=== PATIENT | female | born 1940 | race Caucasian/White ===

== ENCOUNTER → 2018-05-13 | Outpatient (CLI) | payer OTHER ==
[~2018-05-13] MED LIST: BUSP5TAB3 PO; GABA-531 PO; LEVO125T11 PO; LOVA40TA2 PO; MELA10CA2 PO; METO25TA6 PO; PRAM0.5T3 PO; SUCR1ORA5 PO; TRAM50TA4 PO; VITAMIN B12 PO; VITAMIN B6 PO; WARF-57 PO
== END | disposition home or self-care (01) ==
LOC: RAH 10:30
PROVIDERS: ATTEND Internal Medicine
DX: R92.2 Inconclusive mammogram (principal)
CPT/HCPCS: 77066

== ENCOUNTER → 2019-10-19 | Outpatient (CLI) | payer OTHER ==
[~2019-10-19] MED LIST changes: +SUCR1ORA15 PO; -SUCR1ORA5 PO
== END | disposition home or self-care (01) ==
LOC: SHCH 10:44
PROVIDERS: ATTEND Internal Medicine Cardiovascular Disease
DX: I87.2 Venous insufficiency (chronic) (peripheral) (principal)
CPT/HCPCS: 93970

== ENCOUNTER 2020-01-05 07:22 | Day surgery (SDC) | payer OTHER ==
[2020-01-05] VITALS (7 sets, daily range): BP systolic 128–177; BP diastolic 56–79
[~2020-01-05] VITALS: Ht 165.1 cm; Wt 74.2 kg
[~2020-01-05 07:22] MED LIST changes: -BUSP5TAB3 PO; +FURO20TA4 PO; +SODIUM CHLORIDE 0.9% 1000ML 1,000 ML IV ONE
[2020-01-05] MEDS ORDERED: DENO60DI SQ (09:22)
[2020-01-05] MEDS ORDERED: HYOS-27 SL (09:22)
[2020-01-05] MEDS ORDERED: MV-M1TAB20 PO (09:22)
[2020-01-05] MEDS ORDERED: PANT40TA25 PO (09:22)
[2020-01-05] MEDS ORDERED: FURO20TA4 PO (09:22)
[2020-01-05] MEDS ORDERED: MIDAZOLAM HCL 1 MG/ML 2ML VIAL ONE (09:56)
[2020-01-05] MEDS ORDERED: PROPOFOL 10 MG/ML 20ML VIAL IV ONE (09:56)
[2020-01-05] MEDS ORDERED: SIMETHICONE 40 MG/0.6 ML ML ONE (10:57)
--- NOTE | 2020-01-05 10:57 | NUR ---
PAIN PT C/O PAIN, "GENERALIZED" TO ABD AND "ALL OVER." ABD SOFT TO TOUCH. BS X4 PRESENT. ELIS SALDANA MADE AWARE. SHE WILL INFORM DR. FUNES
--- NOTE | 2020-01-05 11:03 | NUR ---
EVALUATION DR. FUNES HERE TO EVALUATE PT. PALPATED ABD. ORDERS RECEIVED TO GIVE 20 MG OF SIMETHICONE ORALLY NOW.
--- NOTE | 2020-01-05 11:16 | NUR ---
PAIN PT BURPING. AMBULATED TO RESTROOM. VOIDED. FEELS BETTER.
== END 2020-01-05 11:30 | disposition home or self-care (01) ==
LOC: ENDO 07:22 → DAH 07:22 → ENDO 11:30
PROVIDERS: ATTEND Internal Medicine Gastroenterology
DX: R93.3 Abnormal findings on diagnostic imaging of other parts of digestive tract (principal); K22.8 Other specified diseases of esophagus; K22.0 Achalasia of cardia; K86.9 Disease of pancreas, unspecified; K21.9 Gastro-esophageal reflux disease without esophagitis; F41.9 Anxiety disorder, unspecified; M85.80 Other specified disorders of bone density and structure, unspecified site; G47.30 Sleep apnea, unspecified; E78.5 Hyperlipidemia, unspecified; I10 Essential (primary) hypertension; E03.9 Hypothyroidism, unspecified; F32.9 Major depressive disorder, single episode, unspecified; Z90.710 Acquired absence of both cervix and uterus; Z98.890 Other specified postprocedural states; Z79.01 Long term (current) use of anticoagulants; Z79.84 Long term (current) use of oral hypoglycemic drugs; Z79.899 Other long term (current) drug therapy; I48.0 Paroxysmal atrial fibrillation; Z11.59 Encounter for screening for other viral diseases
CPT/HCPCS: 36415; 43237; A4215; A4221; A4222; A4223; A4606; A4620; A4663; J2250; J2704; J7030; U0003; 43259

== ENCOUNTER 2020-07-16 23:54 | Emergency (ER) | payer OTHER ==
[~2020-07-16 23:54] MED LIST changes: +DENO60DI SQ; +HYOS-27 SL; +MV-M1TAB20 PO; +PANT40TA54 PO; -SODIUM CHLORIDE 0.9% 1000ML 1,000 ML IV ONE; -VITAMIN B6 PO
[2020-07-17] MEDS ORDERED: CEFTRIAXONE SODIUM 1 GM ONE (00:28)
[2020-07-17] MEDS ORDERED: DEXAMETHASONE SOD PHOSPHATE 10MG/ML 1ML VIAL ONE (00:28)
[2020-07-17] MEDS ORDERED: ONDANSETRON HCL 4 MG/2 ML VIAL ONE ×2 (00:28→03:03)
[2020-07-17] MEDS ORDERED: FAMOTIDINE/PF 20 MG/2 ML VIAL IV ONE (00:29)
[2020-07-17 00:30] LABS: BASOPHILS % (AUTO) 0.3 % (0.0-5.0); EOSINOPHILS % (AUTO) 0.2 % (0.0-8.0); HEMATOCRIT 36.5 % (36-48); MEAN CORPUSCULAR HEMOGLOBIN 26.9 pg (27.0-33.0); MEAN CORPUSCULAR HGB CONC 32.3 g/dL (32.0-36.0); MEAN CORPUSCULAR VOLUME 83.3 fL (79-99); MONOCYTES % (AUTO) 7.9 % (3.0-13.0); NEUTROPHILS % (AUTO) 74.3 % (40.0-77.0); PLATELET COUNT (AUTO) 369 K/uL (130-400); RED BLOOD CELL COUNT(AUTO) 4.38 MIL/uL (4.00-5.50); RED CELL DISTRIBUTION WIDTH 15.4 % (11.0-15.5); WHITE BLOOD COUNT (AUTO) 8.8 K/uL (4.8-10.8)
[2020-07-17 00:50] LABS: INR 1.69 (0.85-1.15); PROTHROMBIN TIME 17.2 SEC (9.6-11.6)
[2020-07-17 00:52] LABS: PARTIAL THROMBOPLASTIN TIME 31.6 SEC (26.3-35.5)
[2020-07-17 00:57] LABS: ALBUMIN 3.3 g/dL (3.5-5.0); BILIRUBIN,TOTAL 0.6 mg/dL (0.2-1.0); CREATININE 0.8 mg/dL (0.5-1.5); TOTAL PROTEIN, SERUM 7.2 g/dL (6.0-8.3)
[2020-07-17 00:58] LABS: POTASSIUM 2.9 mmol/L (3.5-5.1)
[2020-07-17] MEDS ORDERED: POTASSIUM BICARB/CIT AC 25 MEQ TABLET.EFF ONE (01:32)
[2020-07-17 01:56] LABS: APPEARANCE,URINE Cloudy (CLEAR); BILIRUBIN,URINE Negative (NEGATIVE); COLOR,URINE Yellow (YELLOW); GLUCOSE, URINE (UA) Negative (NEGATIVE); KETONES,URINE 15 mg/dL (NEGATIVE); LEUKOCYTE ESTERASE ,URINE Trace (NEGATIVE); NITRATE,URINE Negative (NEGATIVE); OCCULT BLOOD,URINE Negative (NEGATIVE); PH,URINE 8.5 (5.0-8.0); PROTEIN,URINE Negative (NEGATIVE); UROBILINOGEN,URINE 0.2 mg/dL (0.2-1.0)
[2020-07-17 02:22] LABS: AMORPHOUS SEDIMENT,UR Moderate /LPF (None Seen); BACTERIA,URINE None Seen /HPF (None Seen); RBC,URINE None Seen /HPF (0-1); SQUAMOUS EPITHELIAL CELL,UR Rare /HPF (0-2); WBC,URINE 0-1 /HPF (0-1)
[2020-07-17] MEDS ORDERED: DiphenhydrAMINE HCL 50 MG/ML VIAL ONE (03:03)
[2020-07-17] MEDS ORDERED: PROCHLORPERAZINE EDISYLATE 10 MG/2 ML VIAL ONE (03:03)
[2020-07-17 03:32] LABS: CREATININE 0.8 mg/dL (0.5-1.5); POTASSIUM 3.7 mmol/L (3.5-5.1)
[2020-07-17 03:37] LABS: ALBUMIN 3.4 g/dL (3.5-5.0); BILIRUBIN,TOTAL 0.6 mg/dL (0.2-1.0); TOTAL PROTEIN, SERUM 7.7 g/dL (6.0-8.3)
[2020-09-03] MEDS ORDERED: METO-408 PO (11:12)
== END 2020-07-17 05:39 | disposition home or self-care (01) ==
LOC: EDH 23:54
DX: E87.6 Hypokalemia (principal); J44.1 Chronic obstructive pulmonary disease with (acute) exacerbation; I10 Essential (primary) hypertension; Z88.8 Allergy status to other drugs, medicaments and biological substances
CPT/HCPCS: 36415; 71045; 80053 ×2; 81001; 83605; 84484 ×2; 85025; 85610; 85730; 87040 ×2; 93005; 96365; 96375; 96376; 99284; J0696; J0780; J1100; J1200; J2405 ×2; J3490

== ENCOUNTER 2020-08-30 08:41 | Inpatient (IN) | payer OTHER ==
[~2020-08-30] VITALS: Ht 162.6 cm; Wt 56.1 kg
[2020-08-30 11:12] LABS: BASOPHILS % (AUTO) 0.3 % (0.0-5.0); HEMATOCRIT 37.7 % (36-48); LYMPHOCYTES % (AUTO) 8.7 % (21.0-51.0); MEAN CORPUSCULAR HEMOGLOBIN 25.7 pg (27.0-33.0); MEAN CORPUSCULAR VOLUME 82.9 fL (79-99); NEUTROPHILS % (AUTO) 84.5 % (40.0-77.0); PLATELET COUNT (AUTO) 391 K/uL (130-400); RED BLOOD CELL COUNT(AUTO) 4.55 MIL/uL (4.00-5.50); RED CELL DISTRIBUTION WIDTH 14.5 % (11.0-15.5); WHITE BLOOD COUNT (AUTO) 11.2 K/uL (4.8-10.8)
[2020-08-30 11:19] LABS: CREATININE 0.9 mg/dL (0.5-1.5); POTASSIUM 3.3 mmol/L (3.5-5.1)
[2020-08-30 11:24] LABS: ALBUMIN 3.8 g/dL (3.5-5.0); BILIRUBIN,TOTAL 0.7 mg/dL (0.2-1.0); TOTAL PROTEIN, SERUM 8.1 g/dL (6.0-8.3)
[2020-08-30] MEDS ORDERED: HYOSCYAMINE SULFATE 0.125 MG TAB.SUBL SL ONE (11:25)
[2020-08-30] MEDS ORDERED: 0.9%NACL 1000ML 1,000 ML IV ONE (11:25)
[2020-08-30] MEDS ORDERED: ONDANSETRON 4MG INJ ONE ×2 (11:25→15:53)
[2020-08-30] MEDS ORDERED: 0.9%NACL 50ML 50 ML IV ONE ×2 (11:27→15:58)
[2020-08-30] MEDS ORDERED: FENTANYL CITRATE PF 50 MCG/1 ML 2ML VIAL ONE (11:27)
[2020-08-30] MEDS ORDERED: IOHEXOL-350 75 ML VIAL IV ONE (12:13)
[2020-08-30 13:43] LABS: INR 1.6 (0.85-1.15); PROTHROMBIN TIME 16.7 SEC (9.6-11.6)
[2020-08-30 13:45] LABS: PARTIAL THROMBOPLASTIN TIME 29.1 SEC (26.3-35.5)
[2020-08-30] MEDS: DEXTROSE 5 % AND 0.9 % NACL 1,000 ML IV SCH (14:00)
[2020-08-30] MEDS ORDERED: ONDANSETRON 4MG INJ IVP PRN (14:00)
[2020-08-30] MEDS ORDERED: MAGNESIUM 2GM PREMIX 50ML 50 ML IV SCH (14:00)
[2020-08-30] MEDS: CEFTRIAXONE 1G VIAL IVP SCH (14:00)
[2020-08-30] MEDS: PANTOPRAZOLE 40 MG/VIAL IVP SCH ×2 (14:00→21:00)
[2020-08-30] MEDS ORDERED: POTASSIUM CHLORIDE 20MEQ/100ML 100 ML IV ONE (14:57)
[2020-08-30] MEDS ORDERED: PANTOPRAZOLE 40 MG/VIAL ONE (15:53)
[2020-08-30] MEDS ORDERED: CEFTRIAXONE 1G VIAL ONE (15:57)
[2020-08-30] MEDS ORDERED: DEXTROSE 5 % AND 0.9 % NACL 1,000 ML IV ONE (15:58)
[2020-08-30 16:16] LABS: APPEARANCE,URINE Clear (CLEAR); BILIRUBIN,URINE Negative (NEGATIVE); COLOR,URINE Yellow (YELLOW); GLUCOSE, URINE (UA) Negative (NEGATIVE); KETONES,URINE 15 mg/dL (NEGATIVE); LEUKOCYTE ESTERASE ,URINE Negative (NEGATIVE); NITRATE,URINE Negative (NEGATIVE); OCCULT BLOOD,URINE Negative (NEGATIVE); PROTEIN,URINE Trace mg/dL (NEGATIVE); UROBILINOGEN,URINE 0.2 mg/dL (0.2-1.0)
[2020-08-30 16:45] LABS: BACTERIA,URINE Few /HPF (None Seen); MUCUS,URINE Few LPF (None Seen); SQUAMOUS EPITHELIAL CELL,UR 0-2 /HPF (0-2)
[2020-08-30] MEDS ORDERED: LIDOCAINE HCL-MPF 1% 2ML VIAL ONE (17:40)
[2020-08-31] MEDS ORDERED: DILTIAZEM 50MG VIAL IV ONE ×2 (03:43→04:30)
[2020-08-31] MEDS ORDERED: 0.9% NACL 500ML IV.SOLN 500 ML IV ONE (03:57)
[2020-08-31 04:00] LABS: MEAN CORPUSCULAR HEMOGLOBIN 26.2 pg (27.0-33.0); MEAN CORPUSCULAR HGB CONC 31.9 g/dL (32.0-36.0); RED BLOOD CELL COUNT(AUTO) 4.39 MIL/uL (4.00-5.50); RED CELL DISTRIBUTION WIDTH 14.5 % (11.0-15.5); WHITE BLOOD COUNT (AUTO) 13.8 K/uL (4.8-10.8)
[2020-08-31] MEDS ORDERED: LORAZEPAM 2 MG/ML 1 ML VIAL ONE (04:14)
[2020-08-31] MEDS ORDERED: DILTIAZEM 125 MG/25 ML INJ 125 MG in 0.9%NACL 100ML 100 ML IV SCH (04:15)
[2020-08-31 04:18] LABS: CREATININE 0.8 mg/dL (0.5-1.5); POTASSIUM 3.1 mmol/L (3.5-5.1)
[2020-08-31] MEDS ORDERED: 0.9%NACL 100ML 100 ML IV ONE (04:30)
[2020-08-31 04:35] LABS: ALBUMIN 3.5 g/dL (3.5-5.0); BILIRUBIN,TOTAL 0.7 mg/dL (0.2-1.0); THYROID STIMULATING HORMONE 12.67 uIU/mL (0.36-3.74); TOTAL PROTEIN, SERUM 7.4 g/dL (6.0-8.3)
[2020-08-31 04:36] LABS: INR 1.65 (0.85-1.15); PROTHROMBIN TIME 17.2 SEC (9.6-11.6)
[2020-08-31 04:37] LABS: PARTIAL THROMBOPLASTIN TIME 29.3 SEC (26.3-35.5)
[2020-08-31] MEDS: DEXTROSE 5 % AND 0.9 % NACL 1,000 ML IV SCH ×2 (05:24→22:40)
[2020-08-31] MEDS: PANTOPRAZOLE 40 MG/VIAL IVP SCH ×2 (09:00→22:39)
[2020-08-31] MEDS ORDERED: PANTOPRAZOLE 40 MG/VIAL ONE (09:41)
[2020-08-31] MEDS ORDERED: AMIODARONE 900MG VIAL 150 MG in DEXTROSE 5%-WATER 100 ML IV SCH (13:00)
[2020-08-31] MEDS ORDERED: AMIODARONE 900MG VIAL 900 MG in DEXTROSE 5%-WATER 500 ML IV SCH (13:00)
[2020-08-31] MEDS ORDERED: AMIODARONE 900MG VIAL 450 MG in DEXTROSE 5%-WATER 250 ML IV SCH (13:15)
[2020-08-31] MEDS ORDERED: AMIODARONE 900MG VIAL 360 MG in DEXTROSE 5%-WATER 200 ML IV SCH (13:15)
[2020-08-31 13:30] VITALS: BP 125/58
[2020-08-31] MEDS: CEFTRIAXONE 1G VIAL IVP SCH (14:46)
[2020-08-31] MEDS: ENOXAPARIN SODIUM 40 MG/0.4 ML SYRINGE SQ SCH (14:47)
[2020-08-31 16:00] VITALS: BP 117/45
[2020-08-31 20:34] VITALS: BP 137/60
[2020-08-31 23:43] VITALS: BP 136/61
[2020-09-01] VITALS (20 sets, daily range): BP systolic 129–154; BP diastolic 53–90
[2020-09-01 06:33] LABS: BASOPHILS % (AUTO) 0.5 % (0.0-5.0); EOSINOPHILS % (AUTO) 1.7 % (0.0-8.0); HEMATOCRIT 32.4 % (36-48); LYMPHOCYTES % (AUTO) 23.7 % (21.0-51.0); MEAN CORPUSCULAR HEMOGLOBIN 25.6 pg (27.0-33.0); MEAN CORPUSCULAR HGB CONC 31.2 g/dL (32.0-36.0); MONOCYTES % (AUTO) 10.3 % (3.0-13.0); NEUTROPHILS % (AUTO) 63.6 % (40.0-77.0); PLATELET COUNT (AUTO) 322 K/uL (130-400); RED BLOOD CELL COUNT(AUTO) 3.95 MIL/uL (4.00-5.50); RED CELL DISTRIBUTION WIDTH 14.2 % (11.0-15.5); WHITE BLOOD COUNT (AUTO) 8.2 K/uL (4.8-10.8)
[2020-09-01 06:48] LABS: CREATININE 0.8 mg/dL (0.5-1.5); MAGNESIUM 2.3 mg/dL (1.80-2.40)
[2020-09-01 06:52] LABS: POTASSIUM 2.7 mmol/L (3.5-5.1)
[2020-09-01] MEDS: ENOXAPARIN SODIUM 40 MG/0.4 ML SYRINGE SQ SCH (09:00)
[2020-09-01] MEDS ORDERED: LIDOCAINE HCL-MPF 1% 2ML VIAL ONE (10:13)
[2020-09-01] MEDS ORDERED: LIDOCAINE HCL-MPF 1% 2ML VIAL IV PRN (10:15)
[2020-09-01] MEDS ORDERED: POTASSIUM CHLORIDE 20MEQ/100ML 100 ML IV PRN (10:15)
[2020-09-01] MEDS: PANTOPRAZOLE 40 MG/VIAL IVP SCH ×2 (10:28→22:44)
[2020-09-01] MEDS ORDERED: BOTULINUM TOXIN TYPE A 100 UNITS/VIAL INJ SCH (11:30)
[2020-09-01] MEDS ORDERED: LIDOCAINE HCL-MPF 2% 5ML VIAL ONE (11:42)
[2020-09-01] MEDS ORDERED: PROPOFOL 10 MG/ML 20ML VIAL IV ONE (11:42)
[2020-09-01] MEDS: CEFTRIAXONE 1G VIAL IVP SCH (14:24)
[2020-09-01] MEDS: LIDOCAINE HCL-MPF 1% 2ML VIAL IV PRN (14:27)
[2020-09-01] MEDS: POTASSIUM CHLORIDE 20MEQ/100ML 100 ML IV PRN (14:27)
[2020-09-01] MEDS: DEXTROSE 5 % AND 0.9 % NACL 1,000 ML IV SCH (14:36)
[2020-09-02] VITALS (12 sets, daily range): BP systolic 130–152; BP diastolic 55–80
[2020-09-02] MEDS: POTASSIUM CHLORIDE 20MEQ/100ML 100 ML IV PRN (02:51)
[2020-09-02] MEDS: LIDOCAINE HCL-MPF 1% 2ML VIAL IV PRN (03:01)
[2020-09-02 08:27] LABS: CREATININE 0.7 mg/dL (0.5-1.5); POTASSIUM 3.4 mmol/L (3.5-5.1)
[2020-09-02] MEDS: METOPROLOL TARTRATE 25 MG TAB PO SCH ×2 (08:27→20:48)
[2020-09-02] MEDS: PANTOPRAZOLE 40 MG/VIAL IVP SCH ×2 (09:00→20:48)
[2020-09-02] MEDS ORDERED: MIDAZOLAM HCL 1 MG/ML 2ML VIAL ONE (09:18)
[2020-09-02] MEDS ORDERED: LIDOCAINE HCL 1% MDV 50ML VIAL ONE (09:18)
[2020-09-02] MEDS ORDERED: MEPERIDINE-PF 25 MG/ML SYG ONE ×2 (09:18→10:06)
[2020-09-02] MEDS: CEFTRIAXONE 1G VIAL IVP SCH (14:45)
[2020-09-02] MEDS: WARFARIN SODIUM 5 MG TAB PO SCH (15:51)
[2020-09-02] MEDS: DEXTROSE 5 % AND 0.9 % NACL 1,000 ML IV SCH ×2 (16:54→19:00)
[2020-09-02] MEDS ORDERED: POTASSIUM CHLORIDE 10% ELIXIR 20 MEQ/15 ML UDCUP PO PRN (20:30)
[2020-09-02] MEDS ORDERED: KCL 20 MEQ ERTAB PO ONE (20:50)
[2020-09-03 04:12] VITALS: BP 139/58
[2020-09-03 05:55] LABS: BASOPHILS % (AUTO) 0.4 % (0.0-5.0); EOSINOPHILS % (AUTO) 2.9 % (0.0-8.0); HEMATOCRIT 31.9 % (36-48); LYMPHOCYTES % (AUTO) 24.9 % (21.0-51.0); MEAN CORPUSCULAR HEMOGLOBIN 26.6 pg (27.0-33.0); MEAN CORPUSCULAR HGB CONC 32.9 g/dL (32.0-36.0); MONOCYTES % (AUTO) 8.7 % (3.0-13.0); NEUTROPHILS % (AUTO) 62.7 % (40.0-77.0); PLATELET COUNT (AUTO) 309 K/uL (130-400); RED BLOOD CELL COUNT(AUTO) 3.94 MIL/uL (4.00-5.50); RED CELL DISTRIBUTION WIDTH 14.3 % (11.0-15.5); WHITE BLOOD COUNT (AUTO) 8.2 K/uL (4.8-10.8)
[2020-09-03 06:09] LABS: CREATININE 0.8 mg/dL (0.5-1.5); POTASSIUM 3.1 mmol/L (3.5-5.1)
[2020-09-03] MEDS: KCL 20 MEQ ERTAB PO PRN ×3 (06:41→15:46)
[2020-09-03 07:00] VITALS: BP 135/62
[2020-09-03] MEDS: METOPROLOL TARTRATE 25 MG TAB PO SCH ×2 (08:15→20:10)
[2020-09-03] MEDS: ENOXAPARIN SODIUM 40 MG/0.4 ML SYRINGE SQ SCH (08:15)
[2020-09-03] MEDS: PANTOPRAZOLE 40 MG/VIAL IVP SCH ×2 (08:15→20:10)
[2020-09-03 09:49] LABS: INR 1.44 (0.85-1.15); PROTHROMBIN TIME 15.2 SEC (9.6-11.6)
[2020-09-03 11:00] VITALS: BP 167/69
[2020-09-03] MEDS ORDERED: METO-408 PO ×2 (11:12)
[2020-09-03] MEDS: CEFTRIAXONE 1G VIAL IVP SCH (13:24)
[2020-09-03] MEDS: DEXTROSE 5 % AND 0.9 % NACL 1,000 ML IV SCH (13:27)
[2020-09-03] MEDS: WARFARIN SODIUM 5 MG TAB PO SCH (15:47)
[2020-09-03 16:00] VITALS: BP 151/72
[2020-09-03 19:21] VITALS: BP 143/63
[2020-09-03 23:42] VITALS: BP 138/70
[2020-09-04] MEDS: DEXTROSE 5 % AND 0.9 % NACL 1,000 ML IV SCH ×3 (01:40→23:20)
[2020-09-04 03:52] VITALS: BP 146/58
[2020-09-04 05:47] LABS: BASOPHILS % (AUTO) 0.3 % (0.0-5.0); HEMATOCRIT 31.8 % (36-48); LYMPHOCYTES % (AUTO) 36.7 % (21.0-51.0); MEAN CORPUSCULAR HEMOGLOBIN 26.1 pg (27.0-33.0); MEAN CORPUSCULAR HGB CONC 31.1 g/dL (32.0-36.0); MEAN CORPUSCULAR VOLUME 83.7 fL (79-99); MONOCYTES % (AUTO) 8.7 % (3.0-13.0); NEUTROPHILS % (AUTO) 50.1 % (40.0-77.0); PLATELET COUNT (AUTO) 294 K/uL (130-400); RED CELL DISTRIBUTION WIDTH 14.7 % (11.0-15.5); WHITE BLOOD COUNT (AUTO) 5.8 K/uL (4.8-10.8)
[2020-09-04 06:15] LABS: CREATININE 0.7 mg/dL (0.5-1.5); POTASSIUM 3.8 mmol/L (3.5-5.1)
[2020-09-04 07:00] VITALS: BP 144/69
[2020-09-04] MEDS: PANTOPRAZOLE 40 MG/VIAL IVP SCH ×2 (09:08→20:39)
[2020-09-04] MEDS: KCL 20 MEQ ERTAB PO PRN ×2 (09:09→11:14)
[2020-09-04] MEDS: METOPROLOL TARTRATE 25 MG TAB PO SCH ×2 (09:09→20:40)
[2020-09-04] MEDS: ENOXAPARIN SODIUM 40 MG/0.4 ML SYRINGE SQ SCH (09:11)
[2020-09-04 11:00] VITALS: BP 125/49
[2020-09-04] MEDS: CEFTRIAXONE 1G VIAL IVP SCH (13:20)
[2020-09-04 15:00] VITALS: BP 122/62
[2020-09-04] MEDS: WARFARIN SODIUM 5 MG TAB PO SCH (15:48)
[2020-09-04 19:29] VITALS: BP 129/64
[2020-09-04 23:50] VITALS: BP 134/55
[2020-09-05 03:43] VITALS: BP 135/61
[2020-09-05 04:24] LABS: BASOPHILS % (AUTO) 0.3 % (0.0-5.0); EOSINOPHILS % (AUTO) 4.3 % (0.0-8.0); HEMATOCRIT 31.6 % (36-48); LYMPHOCYTES % (AUTO) 33.9 % (21.0-51.0); MEAN CORPUSCULAR HEMOGLOBIN 26.5 pg (27.0-33.0); MEAN CORPUSCULAR HGB CONC 31.6 g/dL (32.0-36.0); MEAN CORPUSCULAR VOLUME 83.6 fL (79-99); MONOCYTES % (AUTO) 10.1 % (3.0-13.0); NEUTROPHILS % (AUTO) 51.2 % (40.0-77.0); PLATELET COUNT (AUTO) 276 K/uL (130-400); RED BLOOD CELL COUNT(AUTO) 3.78 MIL/uL (4.00-5.50); RED CELL DISTRIBUTION WIDTH 15.1 % (11.0-15.5); WHITE BLOOD COUNT (AUTO) 5.8 K/uL (4.8-10.8)
[2020-09-05 04:46] LABS: ALBUMIN 2.4 g/dL (3.5-5.0); BILIRUBIN,TOTAL 0.3 mg/dL (0.2-1.0); CREATININE 0.8 mg/dL (0.5-1.5); POTASSIUM 4.1 mmol/L (3.5-5.1); TOTAL PROTEIN, SERUM 5.7 g/dL (6.0-8.3)
[2020-09-05] MEDS: ENOXAPARIN SODIUM 40 MG/0.4 ML SYRINGE SQ SCH (07:14)
[2020-09-05] MEDS: PANTOPRAZOLE 40 MG/VIAL IVP SCH ×2 (07:14→20:37)
[2020-09-05] MEDS: METOPROLOL TARTRATE 25 MG TAB PO SCH ×2 (07:14→20:37)
[2020-09-05 08:00] VITALS: BP 133/46
[2020-09-05] MEDS ORDERED: ACETAMINOPHEN 325 MG TAB PO PRN (10:15)
[2020-09-05 11:56] VITALS: BP 143/61
[2020-09-05] MEDS: CEFTRIAXONE 1G VIAL IVP SCH (13:23)
[2020-09-05] MEDS: WARFARIN SODIUM 5 MG TAB PO SCH (15:44)
[2020-09-05 16:00] VITALS: BP 129/53
[2020-09-05 20:08] VITALS: BP 148/58
[2020-09-05] MEDS ORDERED: INSULIN HUMULIN R 100 UNIT/ML 3ML ONE (20:35)
[2020-09-06 00:12] VITALS: BP 143/58
[2020-09-06 04:12] VITALS: BP 131/56
[2020-09-06 08:00] VITALS: BP 111/43
[2020-09-06] MEDS: ENOXAPARIN SODIUM 40 MG/0.4 ML SYRINGE SQ SCH (09:49)
[2020-09-06] MEDS: PANTOPRAZOLE 40 MG/VIAL IVP SCH ×2 (09:49→21:37)
[2020-09-06] MEDS: METOPROLOL TARTRATE 25 MG TAB PO SCH ×2 (09:49→21:37)
[2020-09-06] MEDS: CEFTRIAXONE 1G VIAL IVP SCH (14:43)
[2020-09-06] MEDS: DEXTROSE 5 % AND 0.9 % NACL 1,000 ML IV SCH ×2 (15:24)
[2020-09-06] MEDS ORDERED: BISACODYL 10 MG SUPP.RECT RC SCH (15:30)
[2020-09-06 16:00] VITALS: BP 118/39
[2020-09-06] MEDS: WARFARIN SODIUM 5 MG TAB PO SCH (16:01)
[2020-09-06 20:12] VITALS: BP 133/48
[2020-09-07 00:12] VITALS: BP 149/60
[2020-09-07 04:12] VITALS: BP 127/58
[2020-09-07 05:24] LABS: INR 1.28 (0.85-1.15); PROTHROMBIN TIME 13.6 SEC (9.6-11.6)
[2020-09-07] MEDS: DEXTROSE 5 % AND 0.9 % NACL 1,000 ML IV SCH (05:57)
[2020-09-07 08:02] VITALS: BP 149/52
[2020-09-07] MEDS: ENOXAPARIN SODIUM 40 MG/0.4 ML SYRINGE SQ SCH (08:47)
[2020-09-07] MEDS: PANTOPRAZOLE 40 MG/VIAL IVP SCH (08:47)
[2020-09-07] MEDS: METOPROLOL TARTRATE 25 MG TAB PO SCH (08:47)
[2020-09-07 11:45] VITALS: BP 122/48
[2020-09-07] MEDS: CEFTRIAXONE 1G VIAL IVP SCH (14:00)
[2020-09-07 16:00] VITALS: BP 143/46
[2020-09-07] MEDS: WARFARIN SODIUM 5 MG TAB PO SCH (16:40)
== END 2020-09-07 17:53 | DRG 981 ==
LOC: EDH 08:41 → OBSVTOIN 13:48 → EDHIP 13:48 → 4DH 08-31 11:44
PROVIDERS: ADMIT Internal Medicine; ATTEND Internal Medicine
PROC: 0DC58ZZ Extirpation of Matter from Esophagus, Via Natural or Artificial Opening Endoscopic (ICD-10-PCS; principal; 2020-09-01)
PROC: 0D758ZZ Dilation of Esophagus, Via Natural or Artificial Opening Endoscopic (ICD-10-PCS; 2020-09-01)
PROC: 0JH632Z Insertion of Monitoring Device into Chest Subcutaneous Tissue and Fascia, Percutaneous Approach (ICD-10-PCS; 2020-09-02)
DX: K22.2 Esophageal obstruction (principal); E43 Unspecified severe protein-calorie malnutrition; T18.128A Food in esophagus causing other injury, initial encounter; R13.14 Dysphagia, pharyngoesophageal phase; I48.0 Paroxysmal atrial fibrillation; K22.8 Other specified diseases of esophagus; E87.6 Hypokalemia; N18.30 Chronic kidney disease, stage 3 unspecified; D64.9 Anemia, unspecified; K21.9 Gastro-esophageal reflux disease without esophagitis; I95.1 Orthostatic hypotension; K44.9 Diaphragmatic hernia without obstruction or gangrene; E03.9 Hypothyroidism, unspecified; G25.81 Restless legs syndrome; E78.5 Hyperlipidemia, unspecified; R13.10 Dysphagia, unspecified; F41.9 Anxiety disorder, unspecified; I49.3 Ventricular premature depolarization; I12.9 Hypertensive chronic kidney disease with stage 1 through stage 4 chronic kidney disease, or unspecified chronic kidney disease; Y92.89 Other specified places as the place of occurrence of the external cause; Z88.6 Allergy status to analgesic agent; Z88.8 Allergy status to other drugs, medicaments and biological substances; Z90.79 Acquired absence of other genital organ(s); Z90.722 Acquired absence of ovaries, bilateral; Z68.21 Body mass index [BMI] 21.0-21.9, adult; Z90.710 Acquired absence of both cervix and uterus; Z91.14 Patient's other noncompliance with medication regimen; Z79.01 Long term (current) use of anticoagulants; Z79.899 Other long term (current) drug therapy; Z86.73 Personal history of transient ischemic attack (TIA), and cerebral infarction without residual deficits; Z83.3 Family history of diabetes mellitus; Z82.3 Family history of stroke; Z82.49 Family history of ischemic heart disease and other diseases of the circulatory system
CPT/HCPCS: 33285; 36415; 43247; 70450; 71045; 74177; 80048; 80053; 81001; 83605; 83690; 83735; 84132; 84439; 84443; 84481; 84484; 85025; 85027; 85610; 85730; 87040; 92526; 92610; 93005; 97039; 99156; 99157; A4606; C9113; G0378; J0282; J0585; J0696; J1650; J1815; J2060; J2175; J2250; J2405; J2704; J3010; J3480; J3490; J7030; J7040; J7042; J7060; Q9967

== ENCOUNTER 2021-04-13 15:09 | Emergency (ER) | payer OTHER ==
[2021-04-13] VITALS (12 sets, daily range): BP systolic 160–195; BP diastolic 66–92
[~2021-04-13] VITALS: Ht 154.9 cm; Wt 58.5 kg
[~2021-04-13 15:09] MED LIST changes: +METO-408 PO; -METO25TA6 PO
[2021-04-13] MEDS ORDERED: ONDANSETRON 4MG INJ IVP STA (16:22)
[2021-04-13] MEDS ORDERED: PROPOFOL 10 MG/ML 20ML VIAL IV ONE (16:52)
[2021-04-13] MEDS ORDERED: FENTANYL CITRATE PF 50 MCG/1 ML 2ML VIAL ONE (16:52)
[2021-04-13] MEDS ORDERED: SUCCINYLCHOLINE 200MG/10ML SYR ONE (16:53)
[2021-04-13] MEDS ORDERED: LIDOCAINE HCL 1% 20 ML VIAL ONE (16:53)
[2021-04-13 16:54] LABS: BASOPHILS % (AUTO) 0.4 % (0.0-5.0); EOSINOPHILS % (AUTO) 0.8 % (0.0-8.0); HEMATOCRIT 39.7 % (36-48); LYMPHOCYTES % (AUTO) 12.2 % (21.0-51.0); MEAN CORPUSCULAR HEMOGLOBIN 27.9 pg (27.0-33.0); MEAN CORPUSCULAR HGB CONC 32.2 g/dL (32.0-36.0); MEAN CORPUSCULAR VOLUME 86.5 fL (79-99); MONOCYTES % (AUTO) 6.4 % (3.0-13.0); NEUTROPHILS % (AUTO) 79.8 % (40.0-77.0); PLATELET COUNT (AUTO) 321 K/uL (130-400); RED BLOOD CELL COUNT(AUTO) 4.59 MIL/uL (4.00-5.50); RED CELL DISTRIBUTION WIDTH 14.2 % (11.0-15.5); WHITE BLOOD COUNT (AUTO) 8.5 K/uL (4.8-10.8)
[2021-04-13 17:18] LABS: POTASSIUM 3.8 mmol/L (3.5-5.1)
[2021-04-13 17:33] LABS: ALBUMIN 3.5 g/dL (3.5-5.0); BILIRUBIN,TOTAL 0.6 mg/dL (0.2-1.0); TOTAL PROTEIN, SERUM 8.1 g/dL (6.0-8.3)
[2021-04-13] MEDS ORDERED: HYDRALAZINE 20MG/ML VIAL ONE (18:01)
[2021-04-14 11:35] LABS: BILIRUBIN,URINE NEGATIVE (NEGATIVE); COLOR,URINE YELLOW (YELLOW); GLUCOSE, URINE (UA) NEGATIVE (NEGATIVE); KETONES,URINE 5 mg/dL (NEGATIVE); LEUKOCYTE ESTERASE ,URINE NEGATIVE (NEGATIVE); NITRATE,URINE NEGATIVE (NEGATIVE); OCCULT BLOOD,URINE NEGATIVE (NEGATIVE); PH,URINE 7.5 (5.0-8.0); PROTEIN,URINE NEGATIVE (NEGATIVE); UROBILINOGEN,URINE 0.2 mg/dL (0.2-1.0)
[2021-04-14 11:43] LABS: APPEARANCE,URINE SLIGHTLY CLOUDY (CLEAR)
[2021-04-14 11:49] LABS: AMORPHOUS SEDIMENT,UR Moderate /LPF (None Seen); BACTERIA,URINE Rare /HPF (None Seen); RBC,URINE 0-1 /HPF (0-1); SQUAMOUS EPITHELIAL CELL,UR Rare /HPF (0-2); WBC,URINE 0-1 /HPF (0-1)
== END 2021-04-13 20:46 | disposition home or self-care (01) ==
LOC: EDH 15:09
DX: K22.0 Achalasia of cardia (principal); T18.128A Food in esophagus causing other injury, initial encounter; I10 Essential (primary) hypertension; I48.91 Unspecified atrial fibrillation; K21.9 Gastro-esophageal reflux disease without esophagitis; E78.00 Pure hypercholesterolemia, unspecified; Z98.890 Other specified postprocedural states; Z88.6 Allergy status to analgesic agent; Z88.8 Allergy status to other drugs, medicaments and biological substances; Z79.899 Other long term (current) drug therapy; Z79.01 Long term (current) use of anticoagulants; X58.XXXA Exposure to other specified factors, initial encounter; Y93.89 Activity, other specified; Y92.89 Other specified places as the place of occurrence of the external cause; Y99.8 Other external cause status
CPT/HCPCS: 36415; 43247; 71045; 80053; 81001; 84484; 85025; 99285; A4215; A4222; A4223; A4620; A4657 ×2; J0330; J0360; J2405; J2704; J3010

== ENCOUNTER → 2021-09-13 | Outpatient (CLI) | payer OTHER | END | disposition home or self-care (01) | LOC: RAH 16:17 | PROVIDERS: ATTEND Neurological Surgery | DX: M48.56XD Collapsed vertebra, not elsewhere classified, lumbar region, subsequent encounter for fracture with routine healing (principal); M47.816 Spondylosis without myelopathy or radiculopathy, lumbar region; M48.54XA Collapsed vertebra, not elsewhere classified, thoracic region, initial encounter for fracture; M41.85 Other forms of scoliosis, thoracolumbar region; I70.0 Atherosclerosis of aorta; I70.8 Atherosclerosis of other arteries; Z98.890 Other specified postprocedural states | CPT/HCPCS: 72070; 72100 ==

== ENCOUNTER 2022-07-10 23:04 | Emergency (ER) | payer OTHER ==
[2022-07-10 23:10] VITALS: BP 138/72
== END 2022-07-11 02:46 ==
LOC: EDH 23:04
DX: K94.23 Gastrostomy malfunction (principal); M19.90 Unspecified osteoarthritis, unspecified site; I48.91 Unspecified atrial fibrillation; E78.00 Pure hypercholesterolemia, unspecified; K21.9 Gastro-esophageal reflux disease without esophagitis; Z98.890 Other specified postprocedural states; Z79.899 Other long term (current) drug therapy; Z88.8 Allergy status to other drugs, medicaments and biological substances; Z88.6 Allergy status to analgesic agent; Z79.01 Long term (current) use of anticoagulants; Y73.8 Miscellaneous gastroenterology and urology devices associated with adverse incidents, not elsewhere classified; Y92.89 Other specified places as the place of occurrence of the external cause

== ENCOUNTER 2022-09-08 11:31 | Emergency (ER) | payer OTHER ==
[~2022-09-08] VITALS: Ht 162.6 cm; Wt 54.4 kg
[2022-09-08 11:34] VITALS: BP 144/68
== END 2022-09-08 16:46 | disposition home or self-care (01) ==
LOC: EDH 11:31
DX: K22.0 Achalasia of cardia (principal); K94.23 Gastrostomy malfunction; I10 Essential (primary) hypertension; I48.91 Unspecified atrial fibrillation; E03.9 Hypothyroidism, unspecified; Z88.6 Allergy status to analgesic agent; Z88.8 Allergy status to other drugs, medicaments and biological substances; Z79.899 Other long term (current) drug therapy

== ENCOUNTER → 2023-02-25 | Outpatient (CLI) | payer OTHER | END | disposition home or self-care (01) | LOC: RAH 14:26 | PROVIDERS: ATTEND Internal Medicine Cardiovascular Disease | DX: Z13.6 Encounter for screening for cardiovascular disorders (principal) | CPT/HCPCS: 75571 ==

== ENCOUNTER → 2023-04-22 | Outpatient (CLI) | payer OTHER | END | disposition home or self-care (01) | LOC: SHCH 11:24 | PROVIDERS: ATTEND Internal Medicine Cardiovascular Disease | DX: I73.9 Peripheral vascular disease, unspecified (principal) | CPT/HCPCS: 93925 ==

== ENCOUNTER → 2023-05-07 | Outpatient (CLI) | payer OTHER ==
[2023-05-07 22:52] VITALS: PULSE 62; RESP 10
[2023-05-07 23:36] VITALS: PULSE 59; RESP 10
[2023-05-08] VITALS (11 sets, daily range): PULSE 55–63; RESP 10–12
== END | disposition home or self-care (01) ==
LOC: SLP 10:00
PROVIDERS: ATTEND Internal Medicine Cardiovascular Disease
DX: G47.30 Sleep apnea, unspecified (principal)
CPT/HCPCS: 95810

== ENCOUNTER → 2023-05-13 | Outpatient (CLI) | payer OTHER ==
[2023-05-13 22:59] VITALS: PULSE 66; RESP 14
[2023-05-13 23:16] VITALS: PULSE 62; RESP 19
[2023-05-13 23:24] VITALS: PULSE 60; RESP 18
[2023-05-13 23:28] VITALS: PULSE 50; RESP 16
[2023-05-13 23:45] VITALS: PULSE 64; RESP 9
[2023-05-14] VITALS (13 sets, daily range): PULSE 57–65; RESP 14–24
== END | disposition home or self-care (01) ==
LOC: SLP 20:28
PROVIDERS: ATTEND Internal Medicine Cardiovascular Disease
DX: G47.33 Obstructive sleep apnea (adult) (pediatric) (principal)
CPT/HCPCS: 95811

== ENCOUNTER 2023-08-01 05:51 | Day surgery (SDC) | payer OTHER ==
[~2023-08-01] VITALS: Ht 156.2 cm; Wt 54.9 kg
[2023-08-01] VITALS (13 sets, daily range): BP systolic 105–162; BP diastolic 43–63; PULSE 56–70; RESP 13–17
[~2023-08-01 05:51] MED LIST changes: -DENO60DI SQ; -FURO20TA4 PO; -HYOS-27 SL; -LEVO125T11 PO; +LEVO150C4 PO; -MELA10CA2 PO; -METO-408 PO; +METO25TA6 PO; -MV-M1TAB20 PO; -PRAM0.5T3 PO; +TURMERIC
[2023-08-01] MEDS ORDERED: LIDOCAINE HCL 1% 20 ML VIAL ONE (07:28)
[2023-08-01] MEDS ORDERED: PROPOFOL 10 MG/ML 20ML VIAL IV ONE (07:28)
== END 2023-08-01 10:10 | disposition home or self-care (01) ==
LOC: DAH 05:51 → ENDO 05:51
PROVIDERS: ATTEND Internal Medicine Gastroenterology
DX: K92.1 Melena (principal); K57.30 Diverticulosis of large intestine without perforation or abscess without bleeding; K64.0 First degree hemorrhoids; K21.9 Gastro-esophageal reflux disease without esophagitis; K22.0 Achalasia of cardia; R10.13 Epigastric pain; K59.04 Chronic idiopathic constipation; I10 Essential (primary) hypertension; M79.7 Fibromyalgia; M81.0 Age-related osteoporosis without current pathological fracture; G47.30 Sleep apnea, unspecified; I48.0 Paroxysmal atrial fibrillation; F32.A Depression, unspecified; F41.9 Anxiety disorder, unspecified; E03.9 Hypothyroidism, unspecified; E78.5 Hyperlipidemia, unspecified; M19.90 Unspecified osteoarthritis, unspecified site; Z90.710 Acquired absence of both cervix and uterus; Z98.51 Tubal ligation status; Z79.890 Hormone replacement therapy; Z98.890 Other specified postprocedural states; Z79.899 Other long term (current) drug therapy
CPT/HCPCS: 45378; J2704; A4620; A4215 ×2; A4223; A7002; A4222; A4221; A4663; J7030; A4606; J3490

== ENCOUNTER → 2023-09-25 | Outpatient (CLI) | payer OTHER ==
[2023-09-25 16:27] LABS: POTASSIUM 4.1 mmol/L (3.5-5.1)
== END | disposition home or self-care (01) ==
LOC: LAB 10:00
PROVIDERS: ATTEND Internal Medicine Cardiovascular Disease
DX: I10 Essential (primary) hypertension (principal)
CPT/HCPCS: 36415; 80048

== ENCOUNTER 2023-12-12 22:19 | Observation (INO) | payer OTHER ==
[~2023-12-12] VITALS: Ht 167.6 cm; Wt 87.2 kg
[2023-12-12 22:46] LABS: BASOPHILS # (AUTO) 0.02 K/uL (0.00-0.20); BASOPHILS % (AUTO) 0.3 % (0.0-5.0); EOSINOPHILS # (AUTO) 0.12 K/uL (0.00-0.70); HEMATOCRIT 38.1 % (36-48); IMMATURE GRANULOCYTE ABSOLUTE 0.01 K/uL (0-1); LYMPHOCYTES # (AUTO) 1.4 K/uL (1.0-4.8); LYMPHOCYTES % (AUTO) 24.2 % (21.0-51.0); MEAN CORPUSCULAR HEMOGLOBIN 29.4 pg (27.0-33.0); MEAN CORPUSCULAR HGB CONC 33.6 g/dL (32.0-36.0); MEAN CORPUSCULAR VOLUME 87.4 fL (79-99); MONOCYTES # (AUTO) 0.6 K/uL (0.1-1.0); MONOCYTES % (AUTO) 10.1 % (3.0-13.0); NEUTROPHILS # (AUTO) 3.8 K/uL (1.8-7.7); NEUTROPHILS % (AUTO) 63.2 % (40.0-77.0); PLATELET COUNT (AUTO) 223 K/uL (130-400); RED BLOOD CELL COUNT(AUTO) 4.36 MIL/uL (4.00-5.50); RED CELL DISTRIBUTION WIDTH 12.7 % (11.0-15.5)
[2023-12-12 22:54] LABS: CREATININE 1.1 mg/dL (0.5-1.0); POTASSIUM 3.7 mmol/L (3.5-5.1)
[2023-12-12] MEDS: NIFEDIPINE ER 30 MG TAB PO SCH (23:00)
[2023-12-12] MEDS: GLUCAGON 1MG KIT 1 MG ML IM SCH (23:57)
[2023-12-13] VITALS (11 sets, daily range): BP systolic 120–154; BP diastolic 43–72; PULSE 75–101; RESP 18–19; O2SAT 95–98
[2023-12-13] MEDS: LACTATED RINGERS 1000ML 1,000 ML IV SCH
[2023-12-13] MEDS ORDERED: ACETAMINOPHEN 650 MG SUPPOSITORY RC PRN
[2023-12-13] MEDS ORDERED: ACETAMINOPHEN 325 MG TAB PO PRN
[2023-12-13] MEDS ORDERED: DOCUSATE SODIUM 100 MG CAP PO PRN
[2023-12-13] MEDS ORDERED: IPRATROPIUM/ALBUTEROL SULFATE 3 ML SOLUTION IH PRN
[2023-12-13] MEDS ORDERED: POTASSIUM CHLORIDE 10MEQ/100ML 100 ML IV PRN (00:30)
[2023-12-13] MEDS ORDERED: GLUCAGON 1MG KIT 1 MG ML IM PRN (00:30)
[2023-12-13] MEDS ORDERED: DEXTROSE 50%-WATER 50 ML DISP.SYRIN IV PRN (00:30)
[2023-12-13] MEDS: HYDRALAZINE 20MG/ML VIAL IV PRN (00:32)
[2023-12-13 00:49] LABS: APPEARANCE,URINE CLEAR (CLEAR); BILIRUBIN,URINE NEGATIVE (NEGATIVE); COLOR,URINE LIGHT-YELLOW (YELLOW); GLUCOSE, URINE (UA) NEGATIVE (NEGATIVE); KETONES,URINE 10 mg/dL (NEGATIVE); LEUKOCYTE ESTERASE ,URINE 250 Leu/uL (NEGATIVE); NITRATE,URINE NEGATIVE (NEGATIVE); OCCULT BLOOD,URINE NEGATIVE (NEGATIVE); PH,URINE 6.5 (5.0-8.0); PROTEIN,URINE NEGATIVE (NEGATIVE); UROBILINOGEN,URINE 0.2 mg/dL (0.2-1.0)
[2023-12-13] MEDS: 0.9%NACL 1000ML 1,000 ML IV ONE (00:50)
[2023-12-13 00:55] LABS: MUCUS,URINE RARE LPF (None Seen); SQUAMOUS EPITHELIAL CELL,UR RARE /HPF (0-2); WBC,URINE 51-100 /HPF (0-1)
[2023-12-13] MEDS: 0.9%NACL 1000ML 1,000 ML IV SCH (01:30)
[2023-12-13] MEDS: ONDANSETRON 4MG INJ IVP PRN (01:47)
[2023-12-13] MEDS ORDERED: FERR-82 PO (02:00)
[2023-12-13] MEDS ORDERED: CALC-190 PO (02:00)
[2023-12-13] MEDS ORDERED: HYDR200T75 PO (02:00)
[2023-12-13] MEDS ORDERED: CHOL2000 PO (02:00)
[2023-12-13] MEDS ORDERED: METO-391 PO (02:00)
[2023-12-13] MEDS ORDERED: LOSA25TA41 PO (02:00)
[2023-12-13] MEDS: INSULIN HUMULIN R 100 UNIT/ML 3ML SQ SCH (06:00)
[2023-12-13 06:52] LABS: BASOPHILS # (AUTO) 0.03 K/uL (0.00-0.20); BASOPHILS % (AUTO) 0.4 % (0.0-5.0); EOSINOPHILS # (AUTO) 0.01 K/uL (0.00-0.70); EOSINOPHILS % (AUTO) 0.1 % (0.0-8.0); HEMATOCRIT 35.4 % (36-48); IMMATURE GRANULOCYTE ABSOLUTE 0.03 K/uL (0-1); LYMPHOCYTES # (AUTO) 0.9 K/uL (1.0-4.8); LYMPHOCYTES % (AUTO) 10.7 % (21.0-51.0); MEAN CORPUSCULAR HEMOGLOBIN 29.2 pg (27.0-33.0); MEAN CORPUSCULAR HGB CONC 34.2 g/dL (32.0-36.0); MEAN CORPUSCULAR VOLUME 85.3 fL (79-99); MONOCYTES # (AUTO) 0.3 K/uL (0.1-1.0); MONOCYTES % (AUTO) 3.8 % (3.0-13.0); NEUTROPHILS # (AUTO) 6.9 K/uL (1.8-7.7); NEUTROPHILS % (AUTO) 84.6 % (40.0-77.0); PLATELET COUNT (AUTO) 237 K/uL (130-400); RED BLOOD CELL COUNT(AUTO) 4.15 MIL/uL (4.00-5.50); RED CELL DISTRIBUTION WIDTH 12.9 % (11.0-15.5); WHITE BLOOD COUNT (AUTO) 8.1 K/uL (4.8-10.8)
[2023-12-13 07:05] LABS: CREATININE 0.9 mg/dL (0.5-1.0); MAGNESIUM 1.7 mg/dL (1.80-2.40); PHOSPHORUS 3.9 mg/dL (2.5-4.9); POTASSIUM 3.7 mmol/L (3.5-5.1)
[2023-12-13] MEDS ORDERED: INSULIN HUMULIN R 100 UNIT/ML 3ML SQ SCH (07:30)
[2023-12-13] MEDS: MAGNESIUM 2GM PREMIX 50ML 50 ML IV PRN (07:54)
[2023-12-13] MEDS: ENOXAPARIN SODIUM 30 MG/0.3 ML SQ SCH (08:02)
[2023-12-13 08:37] LABS: HEMOGLOBIN A1C 6.4 % (4.0-6.0)
[2023-12-13] MEDS: CEFTRIAXONE 2GM VIAL IVPB SCH (10:23)
[2023-12-13] MEDS: NEOMY SULF/BACITRA/POLYMYXIN B 1 EACH PACKET TP SCH (10:24)
[2023-12-13] MEDS: PANTOPRAZOLE 40 MG/VIAL IVP SCH (12:15)
[2023-12-13] MEDS ORDERED: SUCRALFATE 1 GM/10 ML PO PRN (14:00)
[2023-12-13 16:43] LABS: INR 1.42 (0.85-1.15); PROTHROMBIN TIME 16.3 SEC (9.6-11.6)
[2023-12-13] MEDS: WARFARIN SODIUM 5 MG TAB PO SCH (17:12)
[2023-12-14] VITALS (7 sets, daily range): BP systolic 129–139; BP diastolic 54–64; PULSE 57–83; RESP 17–18; O2SAT 93–100
[2023-12-14] MEDS: LACTULOSE 20 GM/30 ML UDCUP PO PRN (03:10)
[2023-12-14] MEDS ORDERED: LEVOTHYROXINE 150 MCG TABLET PO SCH (06:30)
[2023-12-14] MEDS ORDERED: NON-FORMULARY MEDICATION 1 EACH (Ferrous Sulfate (Iron) 325 MG) PO SCH (09:00)
[2023-12-14] MEDS ORDERED: NON-FORMULARY MEDICATION 1 EACH (Levothyroxine Sodium (Levothyroxine) 150 MCG) PO SCH (09:00)
[2023-12-14] MEDS: LOSARTAN 25 MG TABLET PO SCH (09:14)
[2023-12-14] MEDS: METOPROLOL SUCCINATE 50 MG TAB.SR.24H PO SCH (09:15)
[2023-12-14] MEDS: HYDROXYCHLOROQUINE SULFATE 200 MG TAB PO SCH (09:15)
[2023-12-14] MEDS: FERROUS SULFATE 325 MG TABLET.DR PO SCH (09:15)
[2023-12-14 12:00] LABS: BASOPHILS # (AUTO) 0.02 K/uL (0.00-0.20); BASOPHILS % (AUTO) 0.3 % (0.0-5.0); EOSINOPHILS # (AUTO) 0.14 K/uL (0.00-0.70); EOSINOPHILS % (AUTO) 2.2 % (0.0-8.0); HEMATOCRIT 37.7 % (36-48); IMMATURE GRANULOCYTE ABSOLUTE 0.01 K/uL (0-1); LYMPHOCYTES # (AUTO) 1.8 K/uL (1.0-4.8); LYMPHOCYTES % (AUTO) 26.9 % (21.0-51.0); MEAN CORPUSCULAR HEMOGLOBIN 29.2 pg (27.0-33.0); MEAN CORPUSCULAR HGB CONC 33.7 g/dL (32.0-36.0); MEAN CORPUSCULAR VOLUME 86.7 fL (79-99); MONOCYTES # (AUTO) 0.8 K/uL (0.1-1.0); MONOCYTES % (AUTO) 12.3 % (3.0-13.0); NEUTROPHILS # (AUTO) 3.8 K/uL (1.8-7.7); NEUTROPHILS % (AUTO) 58.1 % (40.0-77.0); PLATELET COUNT (AUTO) 239 K/uL (130-400); RED BLOOD CELL COUNT(AUTO) 4.35 MIL/uL (4.00-5.50); WHITE BLOOD COUNT (AUTO) 6.5 K/uL (4.8-10.8)
[2023-12-14 12:15] LABS: INR 1.43 (0.85-1.15); PROTHROMBIN TIME 16.4 SEC (9.6-11.6)
[2023-12-14 12:17] LABS: PARTIAL THROMBOPLASTIN TIME 29.8 SEC (26.3-35.5)
[2023-12-14 12:38] LABS: CREATININE 0.9 mg/dL (0.5-1.0); POTASSIUM 3.9 mmol/L (3.5-5.1)
[2023-12-14] MEDS ORDERED: LEVO100C4 PO (14:10)
== END 2023-12-14 16:40 | disposition home or self-care (01) ==
LOC: EDH 22:19 → EDHIP 23:55 → 3CH 12-13 01:07
PROVIDERS: ADMIT Internal Medicine; ATTEND Internal Medicine
DX: K22.2 Esophageal obstruction (principal); E86.0 Dehydration; E86.1 Hypovolemia; N30.00 Acute cystitis without hematuria; I48.91 Unspecified atrial fibrillation; K59.00 Constipation, unspecified; E05.90 Thyrotoxicosis, unspecified without thyrotoxic crisis or storm; T17.228A Food in pharynx causing other injury, initial encounter; K22.0 Achalasia of cardia; K21.9 Gastro-esophageal reflux disease without esophagitis; E03.9 Hypothyroidism, unspecified; E78.00 Pure hypercholesterolemia, unspecified; G25.81 Restless legs syndrome; G62.9 Polyneuropathy, unspecified; I10 Essential (primary) hypertension; Z91.148 Patient's other noncompliance with medication regimen for other reason; Z79.01 Long term (current) use of anticoagulants; Z88.6 Allergy status to analgesic agent; Z88.8 Allergy status to other drugs, medicaments and biological substances; Z86.2 Personal history of diseases of the blood and blood-forming organs and certain disorders involving the immune mechanism; W44.F3XA Food entering into or through a natural orifice, initial encounter; Y93.89 Activity, other specified; Y92.89 Other specified places as the place of occurrence of the external cause; Y99.8 Other external cause status
CPT/HCPCS: 96372 ×2; 99284; 82550; 84484; 80048 ×3; 85025 ×3; 36415 ×3; 71045; 96376; 96361; 96365; 96366; 96375; 96367; 83036; 84443; 83735; 84100; 85610 ×2; 87077; 87088; 87186; 82948 ×5; 81001; 92610; 85730; 84439; 84481; G0378 ×41; J7030; J1610; J3475; J0696 ×2; J0360; J1650; J2405 ×2; C9113 ×2

== ENCOUNTER → 2024-06-26 | Outpatient (CLI) | payer OTHER ==
[~2024-06-26] MED LIST changes: +CALC-190 PO; +CHOL2000 PO; +FERR-82 PO; -GABA-531 PO; +HYDR200T75 PO; +LEVO100C4 PO; -LEVO150C4 PO; +LOSA25TA41 PO; +METO-391 PO; -METO25TA6 PO; -PANT40TA54 PO; -TRAM50TA4 PO
[2024-06-26 15:25] LABS: BASOPHILS # (AUTO) 0.04 K/uL (0.00-0.20); BASOPHILS % (AUTO) 0.6 % (0.0-5.0); EOSINOPHILS # (AUTO) 0.15 K/uL (0.00-0.70); EOSINOPHILS % (AUTO) 2.1 % (0.0-8.0); HEMATOCRIT 37.5 % (36-48); IMMATURE GRANULOCYTE ABSOLUTE 0.02 K/uL (0-1); LYMPHOCYTES # (AUTO) 2.1 K/uL (1.0-4.8); LYMPHOCYTES % (AUTO) 29.4 % (21.0-51.0); MEAN CORPUSCULAR HGB CONC 31.7 g/dL (32.0-36.0); MEAN CORPUSCULAR VOLUME 91.2 fL (79-99); MONOCYTES # (AUTO) 0.8 K/uL (0.1-1.0); MONOCYTES % (AUTO) 11.2 % (3.0-13.0); NEUTROPHILS % (AUTO) 56.4 % (40.0-77.0); PLATELET COUNT (AUTO) 322 K/uL (130-400); RED BLOOD CELL COUNT(AUTO) 4.11 MIL/uL (4.00-5.50); RED CELL DISTRIBUTION WIDTH 14.4 % (11.0-15.5); WHITE BLOOD COUNT (AUTO) 7.1 K/uL (4.8-10.8)
[2024-06-26 16:17] LABS: CREATININE 0.9 mg/dL (0.5-1.0); POTASSIUM 4.4 mmol/L (3.5-5.1)
[2024-06-26 16:32] LABS: B-TYPE NATRIURETIC PEPTIDE 163 pg/mL (0-100)
== END | disposition home or self-care (01) ==
LOC: LAB 11:14
PROVIDERS: ATTEND Internal Medicine Cardiovascular Disease
DX: I11.0 Hypertensive heart disease with heart failure (principal); I50.42 Chronic combined systolic (congestive) and diastolic (congestive) heart failure
CPT/HCPCS: 36415; 80048; 83880; 85025

== ENCOUNTER 2025-07-03 12:53 | Inpatient (IN) | payer OTHER ==
[~2025-07-03] VITALS: Ht 157.5 cm; Wt 53.5 kg
[~2025-07-03 12:53] MED LIST changes: -LEVO100C4 PO; +LEVO100C5 PO
--- NOTE | 2025-07-03 13:11 | ERN ---
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 Intermittently she has issues with food getting stuck in her esophagus and she indicated to me that she gets a medication to vomit if not the GI doctors with the endoscopy your her esophagus. So stated that 1 such episode of procedure she ended up having an aspiration. For the past 4 days she has not been able to eat as the food is stuck in the esophagus and she has only been able to take small amount of fluids during the morning time. Patient has poor p.o. intake. Temperature 98.7 pulse 87 respirations 20 blood pressure 150/70 with a pulse oximetry of 99% on room air History of achalasia status post heller's myotomy, multiple EGDs, history of AFib on warfarin, high cholesterol, hypertension, hypothyroidism Allergies: Coded Allergies: NSAIDS (Non-Steroidal Anti-Inflamma (Unverified Allergy, Unknown, 05/21/16) aspirin (Unverified Allergy, Unknown, 05/21/16) diazepam (Unverified Allergy, Unknown, 05/21/16) povidone (Unverified Allergy, Unknown, 05/21/16) Uncoded Allergies: REGLAN(METOCLOPRAMIDE) (Allergy, Unknown, 05/21/16) Home Meds Active Scripts Levothyroxine Sodium (Levothyroxine) 100 Mcg Capsule, 100 MCG PO DAILY for 30 Days, #30 CAP Prov:[facility] 12/14/23 Reported Medications Ferrous Sulfate (Iron) 325 Mg (65 Mg Iron) Tablet, 325 MG PO DAILY, TAB 12/13/23 Calcium Carbonate/Vitamin D3 (Calcium + Vitamin D Tablet) 600 Mg Calcium-5 Mcg (200 Unit) Tablet, 1 EACH PO DAILY, TAB 12/13/23 Cholecalciferol (Vitamin D3) (Vitamin D3) 50 Mcg (2000 Unit) Capsule, 50 MCG PO DAILY, CAP 12/13/23 Losartan Potassium (Losartan Potassium) 25 Mg Tablet, 25 MG PO DAILY, TAB 12/13/23 Hydroxychloroquine Sulfate (Hydroxychloroquine Sulfate) 200 Mg Tablet, 200 MG PO DAILY, TAB 12/13/23 Metoprolol Succinate (Metoprolol Succinate) 50 Mg Tab.er.24h, 50 MG PO DAILY, TAB 12/13/23 [Tumeric Gummy] No Conflict Check, 1 TAB.CHEW 07/26/23 [Vitamin B12] No Conflict Check, 500 MCG PO AM 05/21/16 Warfarin Sodium (Warfarin Sodium) 5 Mg Tablet, 5 MG PO 6PM, TAB 05/21/16 Sucralfate (Sucralfate) 1 Gm/10 Ml Oral.susp, 1 GM PO AD PRN for ESOPHAGEL PROBLEMS, ML 05/21/16 Lovastatin (Lovastatin) 40 Mg Tablet, 40 MG PO HS, TAB 05/21/16 Past Medical History Past Medical History: A-Fib, High Cholesterol, Hypertension, Hypothyroid Additional Past Medical Hx: J-TUBE, GASTRITIS, ACHALASIA,RLS Surgical History: Other Surgical History Other: ABDOMINAL EXPLORATORY SURGERIES, MULTIPLE GI PROCEDURES, J-TUBE, BACK Family History: Negative Social History: Negative, Lives in Skilled Nursing History: Not Applicable RN Note Reviewed/Agreed w/PFSH: Yes Review of System Dictation Constitutional: Negative for fever,chills, and weight loss Eyes: Negative for injury, pain,redness, and discharge ENT: Negative for injury,pain or swelling Cardiovascular: Negative for chest pain, palpitations, and edema Respiratory: Negative for shortness of breath, cough, and wheezing, Abdomen/GI: Negative for abdominal pain, nausea, vomiting, diarrhea, and constipation positive for dysphagia and the sensation of food getting stuck in her esophagus Back: Negative for injury and pain : Negative for injury, bleeding and discharge MS/Extremity: Negative for injury and deformity Skin: Negative for rash, and discoloration Neuro: Negative for headache, weakness, numbness, tingling, and seizure Psych: Negative for suicide ideation, homicidal ideation, and hallucinations Initial Vital Sign VS Vital Signs Date Time Temp Pulse Resp B/P (MAP) Pulse Ox O2 Delivery O2 Flow Rate FiO2 07/03/25 12:58 98.8 87 20 150/70 99 Room Air 07/03/25 16:08 0 21 Physical Exam Dictation General: awake, alert, NAD very emaciated elderly female Head/Face: Normocephalic, atraumatic Eyes: PERRL, EOMI, vision at baseline ENT: oral cavity clear, TMs clear, no signs of infection Neck: Trachea midline, supple, no nuchal rigidity Cardiovascular: RRR, normal S1/S2, No MRGs, no JVD Respiratory: CTAB, no respiratory distress, No rales or wheezes Abdomen: Soft, non-tender, non-distended, normal bowel sounds, no guarding or rebound. Skin: Warm, dry, normal turgor, no rash MS/Extremity: Pulses equal, no cyanosis, neurovascular intact, FROM Neuro: COAx4, GCS 15, strength 5/5, CN 2-12 intact, normal cerebellar exam, normal gait, Psych: Normal behavior, mood, and affect normal Extremities-trace edema without any palpable cords, Homans sign is negative Results (Laboratory/Radiology) Laboratory/Radiology Laboratory Tests Test 07/03/25 13:44 White Blood Count 8.9 K/uL (4.8-10.8) Red Blood Count 4.41 MIL/uL (4.00-5.50) Hemoglobin 12.1 g/dL (12.0-16.0) Hematocrit 36.8 % (36-48) Mean Corpuscular Volume 83.4 fL (79-99) Mean Corpuscular Hemoglobin 27.4 pg (27.0-33.0) Mean Corpuscular Hemoglobin Concent 32.9 g/dL (32.0-36.0) Red Cell Distribution Width 13.3 % (11.0-15.5) Platelet Count 323 K/uL (130-400) Mean Platelet Volume 8.5 fL (7.5-10.5) Immature Granulocyte % (Auto) 0.4 % (0-1) Neutrophils (%) (Auto) 72.1 % (40.0-77.0) Lymphocytes (%) (Auto) 16.1 % (21.0-51.0) L Monocytes (%) (Auto) 11.0 % (3.0-13.0) Eosinophils (%) (Auto) 0.2 % (0.0-8.0) Basophils (%) (Auto) 0.2 % (0.0-5.0) Neutrophils # (Auto) 6.4 K/uL (1.8-7.7) Lymphocytes # (Auto) 1.4 K/uL (1.0-4.8) Monocytes # (Auto) 1.0 K/uL (0.1-1.0) Eosinophils # (Auto) 0.02 K/uL (0.00-0.70) Basophils # (Auto) 0.02 K/uL (0.00-0.20) Absolute Immature Granulocyte (auto 0.04 K/uL (0-1) Nucleated Red Blood Cells 0.0 % (0.0-0.19) Sodium Level 134 mmol/L (136-145) L Potassium Level 3.7 mmol/L (3.5-5.1) Chloride Level 100 mmol/L (101-111) L Carbon Dioxide Level 26 mmol/L (21-32) Blood Urea Nitrogen 16 mg/dL (7-18) Creatinine 1.1 mg/dL (0.5-1.0) H Glomerular Filtration Rate Calc 50 mL/min (>90) Random Glucose 93 mg/dL (70-105) Total Calcium 9.5 mg/dL (8.5-10.1) Labs Reviewed?: Yes X-RAY Comment: REASON: dyphagia ORDERING PHYSICIAN: BARB VANCE MD PROCEDURE: CXR1VW - CHEST 1VW STUDY CR chest, 1 view. HISTORY Dysphagia. TECHNIQUE Single frontal radiograph of the chest. COMPARISON None. FINDINGS Lungs and airways The lungs are hyperinflated with increased retrosternal airspace and mild diaphragmatic flattening, compatible with chronic obstructive pulmonary disease. No focal consolidation, pulmonary edema, or acute airspace opacity is identified. Central airways are patent without evident endobronchial lesion. Pleura No pleural effusion or pneumothorax is identified. Heart and mediastinum The cardiomediastinal silhouette is within normal limits in size and contour. No mediastinal widening is seen. Bones and soft tissues No acute osseous abnormality or aggressive osseous lesion is identified. Visualized soft tissues are unremarkable. IMPRESSION * Radiographic features compatible with chronic obstructive pulmonary disease without superimposed acute cardiopulmonary abnormality. /[place] DICTATED BY: JENNY BURDICK DO DATE: 07/03/251540 ELECTRONICALLY SIGNED BY: JENNY BURDICK DO DATE: 07/03/251540 ED Course ED Course Orders Procedure Category Date Status Time Cbc With Differential LAB 07/03/25 Complete 13:10 Basic Metabolic Panel LAB 07/03/25 Complete 13:10 Urinalysis Profile LAB 07/03/25 In Process 13:10 Chest 1vw RAD 07/03/25 Resulted 13:10 Vital Signs Date Time Temp Pulse Resp B/P (MAP) Pulse Ox O2 Delivery O2 Flow Rate FiO2 07/03/25 16:08 98.8 76 16 124/67 97 Room Air* 0 21 07/03/25 12:58 98.8 87 20 150/70 99 Room Air Medical Decision Making MDM Differential diagnosis: Achalasia, esophageal obstruction, dysphagia, esophagitis, esophageal stricture, lower esophageal ring This is an 84-year-old female with known history of severe achalasia for more than 50 years had prior Heller myotomy procedure. Intermittently she has issues with food getting stuck in her esophagus and she indicated to me that she gets a medication to vomit if not the GI doctors with the endoscopy your her esophagus. So stated that 1 such episode of procedure she ended up having an aspiration. For the past 4 days she has not been able to eat as the food is stuck in the esophagus and she has only been able to take small amount of fluids during the morning time. Patient has poor p.o. intake. Temperature 98.7 pulse 87 respirations 20 blood pressure 150/70 with a pulse oximetry of 99% on room air History of achalasia status post heller's myotomy, multiple EGDs, history of AFib on warfarin, high cholesterol, hypertension, hypothyroidism 2:55 p.m. chest x-ray is negative for any acute infiltrate. CBC is with a normal limits. BNP 7 is significant for a sodium of 134 chloride 100 BUN and creatinine are 16 and 1.1. Due to poor p.o. intake and severe dysphagia and food getting stuck in the esophagus I recommended that she should be admitted to the hospital and have GI re-evaluation done and in the interim to get some IV fluids for dehydration and finally she is agreeable 4:40 p.m. patient accepted by [facility]-level provider for [facility] for admission and further management Rationale: Tests considered and ordered secondary to shared decision making include: labs, ECG and radiology Previous outside records reviewed: Old ER visits. Risk of complication and/or morbidity or mortality of patient management: None Medications-Per medication reconciliation Need for hospitalization: Patient does meet criteria for hospitalization. Need for emergency major/minor surgery: No There are no social concerns with this patient. Prescription drug management Prescriptions will include symptomatic care Patient's prior external medical records from other ER visits were reviewed by karthik logan as indicated. Prior testing and results from previous visits were reviewed. Prior tests were taken into account with medical decision making and resource utilization, independent historian/historians were used to obtain complete medical history. I independently interpreted the test that were performed, results were reviewed by me and considered findings on radiology if ordered. Medical management and examination interpretation discussions were had by me with other qualified healthcare professionals as indicated for the patient's care. Problem List Problem List: (1) Esophageal achalasia (2) Dysphagia (3) Mild dehydration DX & DISP Disposition: Inpatient Decision to Admit Time: 16:36 Departure Impression: Primary Impression: Dysphagia Additional Impressions: Esophageal achalasia, Mild dehydration Condition: Stable Additional Instructions: Patient was informed of all the diagnostic labs and procedures conducted in the emergency room today and demonstrated understanding of the results. I personally reviewed and interpreted all the diagnostic exams performed in the ER today. The patient will be admitted to the hospital for further treatment and evaluation. Disposition-admit to facility Condition-stable/guarded Course-uncertain at this time Pain status-decreased Assessment-exam unchanged Admission Certification- I certify that the patients status is appropriate and is based on my best clinical judgment and the patient's condition as documented in the medical records Referrals: LILLI CHRISTIE MD (PCP) BARB VANCE MD Jul 03, 2025 13:11
[2025-07-03 13:56] LABS: IMMATURE GRANULOCYTE ABSOLUTE 0.04 K/uL (0-1); NUCLEATED RED BLOOD CELLS 0.0 % (0.0-0.19); PLATELET COUNT (AUTO) 323 K/uL (130-400); RED BLOOD CELL COUNT(AUTO) 4.41 MIL/uL (4.00-5.50); RED CELL DISTRIBUTION WIDTH 13.3 % (11.0-15.5); WHITE BLOOD COUNT (AUTO) 8.9 K/uL (4.8-10.8)
[2025-07-03 14:19] LABS: CREATININE 1.1 mg/dL (0.5-1.0); GLOMERULAR FILTR. RATE CALC 50.0 mL/min (>90); GLUCOSE,RANDOM 93.0 mg/dL (70-105); SODIUM SERUM 134.0 mmol/L (136-145); UREA NITROGEN, BLOOD 16.0 mg/dL (7-18)
--- NOTE | 2025-07-03 14:41 | HMCIMG ---
STUDY CR chest, 1 view. HISTORY Dysphagia. TECHNIQUE Single frontal radiograph of the chest. COMPARISON None. FINDINGS Lungs and airways The lungs are hyperinflated with increased retrosternal airspace and mild diaphragmatic flattening, compatible with chronic obstructive pulmonary disease. No focal consolidation, pulmonary edema, or acute airspace opacity is identified. Central airways are patent without evident endobronchial lesion. Pleura No pleural effusion or pneumothorax is identified. Heart and mediastinum The cardiomediastinal silhouette is within normal limits in size and contour. No mediastinal widening is seen. Bones and soft tissues No acute osseous abnormality or aggressive osseous lesion is identified. Visualized soft tissues are unremarkable. IMPRESSION * Radiographic features compatible with chronic obstructive pulmonary disease without superimposed acute cardiopulmonary abnormality. /Phong
[2025-07-03 16:35] LABS: APPEARANCE,URINE CLEAR (CLEAR); GLUCOSE, URINE (UA) NEGATIVE (NEGATIVE); LEUKOCYTE ESTERASE ,URINE NEGATIVE Leu/uL (NEGATIVE); NITRATE,URINE NEGATIVE (NEGATIVE); OCCULT BLOOD,URINE NEGATIVE (NEGATIVE)
[2025-07-03 16:36] LABS: ADD UA MICROSCOPIC YES
[2025-07-03] MEDS: 0.9%NACL 1000ML 1,000 ML IV ONE (17:43)
--- NOTE | 2025-07-03 19:16 | NUR ---
REPORT GIVEN TO ELIS LEWIS
[2025-07-03] MEDS: FAMOTIDINE 20MG VIAL IV SCH (20:28)
[2025-07-03 22:17] VITALS: BP 149/75; PULSE 78; RESP 18; TEMP 98.1
[2025-07-03] MEDS ORDERED: DONE-51 PO (22:45)
[2025-07-03] MEDS ORDERED: [UNRECOGNIZED DRUG - CODE] PO (22:45)
[2025-07-03] MEDS ORDERED: GABA-529 PO (22:45)
[2025-07-03] MEDS ORDERED: LEVO137T24 PO (22:45)
[2025-07-03] MEDS ORDERED: ESCI5TAB16 PO (22:45)
[2025-07-03] MEDS ORDERED: SUCR1TAB2 PO (22:45)
--- NOTE | 2025-07-03 22:46 | HP ---
[facility] HISTORY & PHYSICAL Date Patient Seen: Jul 03, 2025 Time of Visit: 22:38 Supervising Physician: Dr. Jovanny Garcia Primary Care Physician: Dr. Jensen Outpatient Specialists: [ ] Inpatient Consults: [ ] PROBLEM LIST: Dysphagia, POA Atrial fibrillation, rate controlled, on warfarin, POA Hypertension, POA Hyperlipidemia, POA Restless leg syndrome, POA History of Achalasia s/p Heller's Myotomy, with multiple EGD's in the past PLAN: Admit to medical-surgical floor with telemetry VS per unit protocol Keep patient strictly NPO We will consult GI in a.m. Aspiration precautions Keep head of bed above 30 Zofran IV p.r.n. for nausea or vomiting Keep SBP less than 160 Replete potassium as needed Keep potassium level above four, magnesium level above two Bilateral SCDs CBC, CMP, magnesium level daily HPI: 84-year-old female with past medical history of hypertension, hyperlipidemia, atrial fibrillation, on chronic anticoagulation with warfarin, history of achalasia s/p Heller myotomy (50 years ago) who presented to ED via private vehicle with complaint of difficulty swallowing with associated vomiting. Apparently patient has been having issues with swallowing for the past several days and can only take small amount of fluids. There is no associated abdominal pain, fever, or aspiration. Patient lives alone, patient was brought in by a neighbor. In ED CBC was done showed no acute infection or anemia, her chemistry did not reveal any electrolyte or kidney dysfunction. Chest x-ray showed features compatible with COPD without superimposed acute cardiopulmonary abnormality. At present patient is currently hemodynamically stable, normal sinus rhythm on the monitor, on room air with appropriate oxygen saturation, denies any headache, chest pain, shortness of breath, cough, abdominal pain, nausea or vomiting, or fever. Patient denies any smoking, alcohol intake, or illicit drug use. PAST MEDICAL HX: see above PAST SURGICAL HX: noncontributory SOCIAL HISTORY: No tobacco, ETOH, or illicit drug use Coded Allergies: NSAIDS (Non-Steroidal Anti-Inflamma (Unverified Allergy, Unknown, 05/21/16) aspirin (Unverified Allergy, Unknown, 05/21/16) diazepam (Unverified Allergy, Unknown, 05/21/16) povidone (Unverified Allergy, Unknown, 05/21/16) Uncoded Allergies: REGLAN(METOCLOPRAMIDE) (Allergy, Unknown, 05/21/16) REVIEW OF SYSTEMS: 12 point ROS reviewed with patient. Pertinent positives mentioned above. Otherwise negative. PHYSICAL EXAM: GENERAL: alert, weak, awake oriented x 3 HEENT: EOMI, Sclera non icteric, moist mucosa NECK: Supple, no JVD, trachea midline LUNGS: Clear breath sounds bilaterally. No wheezes HEART: Regular rate and rhythm. Normal S1 and S2, without murmurs ABD: Abdomen soft, nontender. Bowel sounds present EXT: No clubbing cyanosis or edema NEURO: Alert and oriented to person, follows commands Vital Signs (last 8hr) Date Time Temp Pulse Resp B/P (MAP) Pulse Ox O2 Delivery O2 Flow Rate FiO2 07/03/25 17:40 99.0 82 16 137/61 97 Room Air* 0 21 07/03/25 16:08 98.8 76 16 124/67 97 Room Air* 0 21 LABS: Hematology Labs: Test 07/03/25 13:44 Range/Units White Blood Count 8.9 4.8-10.8 K/uL Red Blood Count 4.41 4.00-5.50 MIL/uL Hemoglobin 12.1 12.0-16.0 g/dL Hematocrit 36.8 36-48 % Mean Corpuscular Volume 83.4 79-99 fL Mean Corpuscular Hemoglobin 27.4 27.0-33.0 pg Mean Corpuscular Hemoglobin Concent 32.9 32.0-36.0 g/dL Red Cell Distribution Width 13.3 11.0-15.5 % Platelet Count 323 130-400 K/uL Mean Platelet Volume 8.5 7.5-10.5 fL Immature Granulocyte % (Auto) 0.4 0-1 % Neutrophils (%) (Auto) 72.1 40.0-77.0 % Lymphocytes (%) (Auto) 16.1 L 21.0-51.0 % Monocytes (%) (Auto) 11.0 3.0-13.0 % Eosinophils (%) (Auto) 0.2 0.0-8.0 % Basophils (%) (Auto) 0.2 0.0-5.0 % Neutrophils # (Auto) 6.4 1.8-7.7 K/uL Lymphocytes # (Auto) 1.4 1.0-4.8 K/uL Monocytes # (Auto) 1.0 0.1-1.0 K/uL Eosinophils # (Auto) 0.02 0.00-0.70 K/uL Basophils # (Auto) 0.02 0.00-0.20 K/uL Absolute Immature Granulocyte (auto 0.04 0-1 K/uL Nucleated Red Blood Cells 0.0 0.0-0.19 % Chemistry Labs: Test 07/03/25 13:44 Range/Units Sodium Level 134 L 136-145 mmol/L Potassium Level 3.7 3.5-5.1 mmol/L Chloride Level 100 L 101-111 mmol/L Carbon Dioxide Level 26 21-32 mmol/L Blood Urea Nitrogen 16 7-18 mg/dL Creatinine 1.1 H 0.5-1.0 mg/dL Glomerular Filtration Rate Calc 50 >90 mL/min Random Glucose 93 70-105 mg/dL Total Calcium 9.5 8.5-10.1 mg/dL DIAGNOSTICS / RADIOLOGY RESULTS: STUDY CR chest, 1 view. HISTORY Dysphagia. TECHNIQUE Single frontal radiograph of the chest. COMPARISON None. FINDINGS Lungs and airways The lungs are hyperinflated with increased retrosternal airspace and mild diaphragmatic flattening, compatible with chronic obstructive pulmonary disease. No focal consolidation, pulmonary edema, or acute airspace opacity is identified. Central airways are patent without evident endobronchial lesion. Pleura No pleural effusion or pneumothorax is identified. Heart and mediastinum The cardiomediastinal silhouette is within normal limits in size and contour. No mediastinal widening is seen. Bones and soft tissues No acute osseous abnormality or aggressive osseous lesion is identified. Visualized soft tissues are unremarkable. IMPRESSION * Radiographic features compatible with chronic obstructive pulmonary disease without superimposed acute cardiopulmonary abnormality. PLAN NEURO: Minimize central acting medications as possible. Maintain fall precautions, adequate lighting during the day PULMONARY: Supplemental 02 as needed. Maintain aspiration precautions at all times CARDIOVASCULAR: Follow hemodynamics. Vital signs per facility protocol GI & NUTRITION: Continue with nutritional support. Continue stool softeners and laxatives as needed. KIDNEYS & ELECTROLYTES: Strict monitoring of intake, output and overall fluid balance. Avoid nephrotoxic medications to the extent possible. Medications to be dosed according to renal function. Monitor electrolytes and replace as needed ENDOCRINE: Maintain blood glucose between 100-180 at all times. Hypoglycemia protocol in place INFECTIOUS DISEASE: Trend temperature, WBC and procalcitonin level Follow cultures, deescalate antibiotics as soon as possible. Panculture if new onset fever ONCOLOGY/HEMATOLOGY/COAGULATION: Monitor for s/s of bleeding Monitor hemoglobin, coagulation studies as needed SKIN: Pressure ulcer prevention per facility protocol Specialty mattress ORTHO/REHAB: Continue PT/OT Prophylaxis: Continue GI and DVT prophylaxis Code Status: Full Resuscitation Disposition: TBD Supervising physician: CUBA Vee AGACNP Jul 03, 2025 22:46
[2025-07-03 22:58] VITALS: O2SAT 94
[2025-07-03] MEDS ORDERED: ALBUTEROL 0.083% 2.5 MG/3 ML INH IH PRN (23:00)
[2025-07-04] VITALS (9 sets, daily range): BP systolic 113–163; BP diastolic 52–83; PULSE 65–79; RESP 16–20; TEMP 97.8–98.2; O2SAT 94–98
[2025-07-04] MEDS: LACTATED RINGERS 1000ML 1,000 ML IV SCH (00:34)
[2025-07-04] MEDS: SODIUM CHLORIDE 3% FOR INHALATION 4 ML/AMP VIAL.NEB IH ONE (06:30)
[2025-07-04 13:56] LABS: IMMATURE GRANULOCYTE ABSOLUTE 0.03 K/uL (0-1); NUCLEATED RED BLOOD CELLS 0.0 % (0.0-0.19); PLATELET COUNT (AUTO) 253 K/uL (130-400); RED BLOOD CELL COUNT(AUTO) 3.89 MIL/uL (4.00-5.50); RED CELL DISTRIBUTION WIDTH 13.6 % (11.0-15.5); WHITE BLOOD COUNT (AUTO) 6.6 K/uL (4.8-10.8)
--- NOTE | 2025-07-04 14:06 | NUR ---
DCP: INITIAL ASSESSMENT Patient lives alone. She has no home services. Patient states she is able to complete ADLs independently and drives. She has 2 canes, standard walker and BPM at home. PCP is DR. Santiago Jensen. Pharmacy is [facility]. Patient voiced no safety concerns regarding returning home and states she has no difficulty with housing or buying food. DCP is home.
[2025-07-04 14:08] LABS: ASPARTATE AMINOTRANSFERASE 27.0 U/L (10-37); CREATININE 0.9 mg/dL (0.5-1.0); GLOMERULAR FILTR. RATE CALC 63.0 mL/min (>90); GLUCOSE,RANDOM 77.0 mg/dL (70-105); PHOSPHORUS 3.2 mg/dL (2.5-4.9); SODIUM SERUM 138.0 mmol/L (136-145); TOTAL PROTEIN, SERUM 6.1 g/dL (6.0-8.3); UREA NITROGEN, BLOOD 12.0 mg/dL (7-18)
[2025-07-04] MEDS ORDERED: SUCRALFATE 1 GM TABLET PO PRN (14:30)
--- NOTE | 2025-07-04 14:39 | PN ---
[facility] PROGRESS NOTE Date Patient Seen: Jul 04, 2025 Time of Visit: 14:39 Supervising Physician: [Dr. Montesinos] Primary Care Physician: Dr. Jensen Outpatient Specialists: [ ] Inpatient Consults: [GI] PROBLEM LIST: Dysphagia, POA Atrial fibrillation, rate controlled, on warfarin, POA Hypertension, POA Hyperlipidemia, POA Restless leg syndrome, POA History of Achalasia s/p Heller's Myotomy, with multiple EGD's in the past PLAN: Order Barium esophagram Consult GI Keep patient strictly NPO Continue IVF Resume home meds Obtain baseline INR Aspiration precautions Keep head of bed above 30 Zofran IV p.r.n. for nausea or vomiting Keep SBP less than 160 Replete potassium as needed Keep potassium level above four, magnesium level above two Bilateral SCDs CBC, CMP, magnesium level daily INTERVAL HISTORY: [84-year-old female with past medical history of hypertension, hyperlipidemia, atrial fibrillation, on chronic anticoagulation with warfarin, history of achalasia s/p Heller myotomy (50 years ago) who presented to ED via private vehicle with complaint of difficulty swallowing with associated vomiting. Apparently patient has been having issues with swallowing for the past several days and can only take small amount of fluids. There is no associated abdominal pain, fever, or aspiration. Patient lives alone, patient was brought in by a neighbor. In ED CBC was done showed no acute infection or anemia, her chemistry did not reveal any electrolyte or kidney dysfunction. Chest x-ray showed features compatible with COPD without superimposed acute cardiopulmonary abnormality. At present patient is currently hemodynamically stable, normal sinus rhythm on the monitor, on room air with appropriate oxygen saturation, denies any headache, chest pain, shortness of breath, cough, abdominal pain, nausea or vomiting, or fever. Patient denies any smoking, alcohol intake, or illicit drug use. ] 07/04 Patient is evaluated at bedside. She continues NPO. Admits an episode of vomiting prior to admission. States unable to pass food including pudding. She is able to pass small amounts of liquids. Patient follows Dr. Pitts outpatient. Cannot remember her last EGD, but states "I don't want that procedure." She has had prior myotomies for her condition and understands that her symptoms are a complication of her condition which may be more appropriately treated through an EGD. Will defer to specialist on evaluation. REVIEW OF SYSTEMS: 12 point ROS reviewed with patient. Pertinent positives mentioned above. Otherw ise negative. PHYSICAL EXAM: GENERAL: alert, weak, awake oriented x 3 HEENT: EOMI, Sclera non icteric, moist mucosa NECK: Supple, no JVD, trachea midline LUNGS: Clear breath sounds bilaterally. No wheezes HEART: Regular rate and rhythm. Normal S1 and S2, without murmurs ABD: Abdomen soft, nontender. Bowel sounds present EXT: No clubbing cyanosis or edema NEURO: Alert and oriented to person, follows commands Vital Signs (last 8hr) Date Time Temp Pulse Resp B/P (MAP) Pulse Ox O2 Delivery O2 Flow Rate FiO2 07/04/25 12:00 98.1 69 18 154/65 95 Room Air 07/04/25 10:04 94 Room Air* 0 21 07/04/25 08:00 98.1 66 16 163/66 94 Room Air LABS: Hematology Labs: Test 07/04/25 13:33 Range/Units White Blood Count 6.6 # 4.8-10.8 K/uL Red Blood Count 3.89 L 4.00-5.50 MIL/uL Hemoglobin 10.5 L 12.0-16.0 g/dL Hematocrit 33.7 L 36-48 % Mean Corpuscular Volume 86.6 79-99 fL Mean Corpuscular Hemoglobin 27.0 27.0-33.0 pg Mean Corpuscular Hemoglobin Concent 31.2 L 32.0-36.0 g/dL Red Cell Distribution Width 13.6 11.0-15.5 % Platelet Count 253 130-400 K/uL Mean Platelet Volume 8.8 7.5-10.5 fL Immature Granulocyte % (Auto) 0.5 0-1 % Neutrophils (%) (Auto) 62.3 40.0-77.0 % Lymphocytes (%) (Auto) 24.7 21.0-51.0 % Monocytes (%) (Auto) 10.1 3.0-13.0 % Eosinophils (%) (Auto) 2.1 0.0-8.0 % Basophils (%) (Auto) 0.3 0.0-5.0 % Neutrophils # (Auto) 4.1 1.8-7.7 K/uL Lymphocytes # (Auto) 1.6 1.0-4.8 K/uL Monocytes # (Auto) 0.7 0.1-1.0 K/uL Eosinophils # (Auto) 0.14 0.00-0.70 K/uL Basophils # (Auto) 0.02 0.00-0.20 K/uL Absolute Immature Granulocyte (auto 0.03 0-1 K/uL Nucleated Red Blood Cells 0.0 0.0-0.19 % Chemistry Labs: Test 07/04/25 13:33 Range/Units Sodium Level 138 136-145 mmol/L Potassium Level 3.7 3.5-5.1 mmol/L Chloride Level 105 101-111 mmol/L Carbon Dioxide Level 25 21-32 mmol/L Blood Urea Nitrogen 12 7-18 mg/dL Creatinine 0.9 0.5-1.0 mg/dL Glomerular Filtration Rate Calc 63 >90 mL/min Random Glucose 77 70-105 mg/dL Total Calcium 8.6 8.5-10.1 mg/dL Phosphorus Level 3.2 2.5-4.9 mg/dL Magnesium Level 1.90 1.80-2.40 mg/dL Total Bilirubin 0.7 0.2-1.0 mg/dL Aspartate Amino Transf (AST/SGOT) 27 10-37 U/L Alanine Aminotransferase (ALT/SGPT) 23 12-78 U/L Alkaline Phosphatase 55 50-136 U/L Total Protein 6.1 6.0-8.3 g/dL Albumin 3.2 L 3.5-5.0 g/dL DIAGNOSTICS / RADIOLOGY RESULTS: [ ] PLAN NEURO: Minimize central acting medications as possible. Maintain fall precautions, adequate lighting during the day PULMONARY: Supplemental 02 as needed. Maintain aspiration precautions at all times CARDIOVASCULAR: Follow hemodynamics. Vital signs per facility protocol GI & NUTRITION: Continue with nutritional support. Continue stool softeners and laxatives as needed. KIDNEYS & ELECTROLYTES: Strict monitoring of intake, output and overall fluid balance. Avoid nephrotoxic medications to the extent possible. Medications to be dosed according to renal function. Monitor electrolytes and replace as needed ENDOCRINE: Maintain blood glucose between 100-180 at all times. Hypoglycemia protocol in place INFECTIOUS DISEASE: Trend temperature, WBC and procalcitonin level Follow cultures, deescalate antibiotics as soon as possible. Panculture if new onset fever ONCOLOGY/HEMATOLOGY/COAGULATION: Monitor for s/s of bleeding Monitor hemoglobin, coagulation studies as needed SKIN: Pressure ulcer prevention per facility protocol Specialty mattress ORTHO/REHAB: Continue PT/OT Prophylaxis: Continue GI and DVT prophylaxis Code Status: Full Resuscitation Disposition: JOSHUA ALVAREZ PAC Jul 04, 2025 14:39
[2025-07-04 16:43] LABS: INR 1.03 (0.85-1.15)
[2025-07-04] MEDS: WARFARIN SODIUM 5 MG TAB PO SCH (18:00)
[2025-07-05] VITALS (10 sets, daily range): BP systolic 137–150; BP diastolic 69–77; PULSE 69–76; RESP 16–18; TEMP 97.5–99.5; O2SAT 96–98
[2025-07-05] MEDS: FERROUS SULFATE 325 MG TABLET.DR PO SCH (08:21)
[2025-07-05] MEDS: ENOXAPARIN SODIUM 40 MG/0.4 ML SYRINGE SQ SCH (09:14)
--- NOTE | 2025-07-05 12:34 | PN ---
[facility] PROGRESS NOTE Date Patient Seen: Jul 05, 2025 Time of Visit: 12:27 Supervising Physician: [Dr Montesinos Primary Care Physician: Dr. Jensen Outpatient Specialists: [ ] Inpatient Consults: [GI] PROBLEM LIST: Dysphagia, POA Atrial fibrillation, rate controlled, on warfarin, POA Hypertension, POA Hyperlipidemia, POA Restless leg syndrome, POA History of Achalasia s/p Heller's Myotomy, with multiple EGD's in the past INTERVAL HISTORY: [84-year-old female with past medical history of hypertension, hyperlipidemia, atrial fibrillation, on chronic anticoagulation with warfarin, history of achalasia s/p Heller myotomy (50 years ago) who presented to ED via private vehicle with complaint of difficulty swallowing with associated vomiting. Apparently patient has been having issues with swallowing for the past several days and can only take small amount of fluids. There is no associated abdominal pain, fever, or aspiration. Patient lives alone, patient was brought in by a neighbor. In ED CBC was done showed no acute infection or anemia, her chemistry did not reveal any electrolyte or kidney dysfunction. Chest x-ray showed features compatible with COPD without superimposed acute cardiopulmonary abnormality. At present patient is currently hemodynamically stable, normal sinus rhythm on the monitor, on room air with appropriate oxygen saturation, denies any headache, chest pain, shortness of breath, cough, abdominal pain, nausea or vomiting, or fever. Patient denies any smoking, alcohol intake, or illicit drug use. ] 07/04 Patient is evaluated at bedside. She continues NPO. Admits an episode of vomiting prior to admission. States unable to pass food including pudding. She is able to pass small amounts of liquids. Patient follows Dr. Pitts outpatient. Cannot remember her last EGD, but states "I don't want that procedure." She has had prior myotomies for her condition and understands that her symptoms are a complication of her condition which may be more appropriately treated through an EGD. Will defer to specialist on evaluation. 07/05 - patient is seen and evaluated at the bedside. Patient is sitting up in bed does not appear to be in any acute distress at this time. Patient remains NPO at this time. Patient reports she was able to pass a small amount of liquids. Patient has a longstanding history of achalasia NS status post Heller's myotomies. GI has been consulted and pending evaluation, patient would benefit from pneumatic dilation. We will await for further recommendations from GI. Vital signs are stable. Labs are within normal limits. We will continue NPO status and IV fluids for now. PLAN: Supplemental oxygen as needed Keep NPO Continue IV fluids Follow GI recommendation Aspiration precautions Keep head of bed above 30 Zofran IV p.r.n. for nausea or vomiting Keep SBP less than 160 Replace electrolytes via protocol Keep potassium level above four, magnesium level above two Bilateral SCDs Repeat a.m. lab REVIEW OF SYSTEMS: 12 point ROS reviewed with patient. Pertinent positives mentioned above. Otherwise negative. PHYSICAL EXAM: GENERAL: alert, weak, awake oriented x 3 HEENT: EOMI, Sclera non icteric, moist mucosa NECK: Supple, no JVD, trachea midline LUNGS: Clear breath sounds bilaterally. No wheezes HEART: Regular rate and rhythm. Normal S1 and S2, without murmurs ABD: Abdomen soft, nontender. Bowel sounds present EXT: No clubbing cyanosis or edema NEURO: Alert and oriented to person, follows commands Vital Signs (last 8hr) Date Time Temp Pulse Resp B/P (MAP) Pulse Ox O2 Delivery O2 Flow Rate FiO2 07/05/25 11:04 71 18 N/A Room Air 21 07/05/25 08:02 97 Room Air* 0 21 07/05/25 07:35 97.7 69 16 141/74 97 Room Air 07/05/25 06:22 75 18 N/A Room Air 21 LABS: Hematology Labs: Test 07/04/25 13:33 Range/Units White Blood Count 6.6 # 4.8-10.8 K/uL Red Blood Count 3.89 L 4.00-5.50 MIL/uL Hemoglobin 10.5 L 12.0-16.0 g/dL Hematocrit 33.7 L 36-48 % Mean Corpuscular Volume 86.6 79-99 fL Mean Corpuscular Hemoglobin 27.0 27.0-33.0 pg Mean Corpuscular Hemoglobin Concent 31.2 L 32.0-36.0 g/dL Red Cell Distribution Width 13.6 11.0-15.5 % Platelet Count 253 130-400 K/uL Mean Platelet Volume 8.8 7.5-10.5 fL Immature Granulocyte % (Auto) 0.5 0-1 % Neutrophils (%) (Auto) 62.3 40.0-77.0 % Lymphocytes (%) (Auto) 24.7 21.0-51.0 % Monocytes (%) (Auto) 10.1 3.0-13.0 % Eosinophils (%) (Auto) 2.1 0.0-8.0 % Basophils (%) (Auto) 0.3 0.0-5.0 % Neutrophils # (Auto) 4.1 1.8-7.7 K/uL Lymphocytes # (Auto) 1.6 1.0-4.8 K/uL Monocytes # (Auto) 0.7 0.1-1.0 K/uL Eosinophils # (Auto) 0.14 0.00-0.70 K/uL Basophils # (Auto) 0.02 0.00-0.20 K/uL Absolute Immature Granulocyte (auto 0.03 0-1 K/uL Nucleated Red Blood Cells 0.0 0.0-0.19 % Chemistry Labs: Test 07/04/25 13:33 Range/Units Sodium Level 138 136-145 mmol/L Potassium Level 3.7 3.5-5.1 mmol/L Chloride Level 105 101-111 mmol/L Carbon Dioxide Level 25 21-32 mmol/L Blood Urea Nitrogen 12 7-18 mg/dL Creatinine 0.9 0.5-1.0 mg/dL Glomerular Filtration Rate Calc 63 >90 mL/min Random Glucose 77 70-105 mg/dL Total Calcium 8.6 8.5-10.1 mg/dL Phosphorus Level 3.2 2.5-4.9 mg/dL Magnesium Level 1.90 1.80-2.40 mg/dL Total Bilirubin 0.7 0.2-1.0 mg/dL Aspartate Amino Transf (AST/SGOT) 27 10-37 U/L Alanine Aminotransferase (ALT/SGPT) 23 12-78 U/L Alkaline Phosphatase 55 50-136 U/L Total Protein 6.1 6.0-8.3 g/dL Albumin 3.2 L 3.5-5.0 g/dL Coagulation Labs: Test 07/04/25 16:22 Range/Units Prothrombin Time 10.9 9.6-11.6 SEC Prothromb Time International Ratio 1.03 0.85-1.15 DIAGNOSTICS / RADIOLOGY RESULTS: PATIENT: PINO MAHAJAN MR#: [id number] : 1940 SEX: F AGE: 84 LOCATION: [facility] ORDER 131 STATUS: REG ER REPORT#: [id number] SERVICE 09 REASON: dyphagia ORDERING PHYSICIAN: BARB VANCE MD PROCEDURE: CXR1VW - CHEST 1VW STUDY CR chest, 1 view. HISTORY Dysphagia. TECHNIQUE Single frontal radiograph of the chest. COMPARISON None. FINDINGS Lungs and airways The lungs are hyperinflated with increased retrosternal airspace and mild diaphragmatic flattening, compatible with chronic obstructive pulmonary disease. No focal consolidation, pulmonary edema, or acute airspace opacity is identified. Central airways are patent without evident endobronchial lesion. Pleura No pleural effusion or pneumothorax is identified. Heart and mediastinum The cardiomediastinal silhouette is within normal limits in size and contour. No mediastinal widening is seen. Bones and soft tissues No acute osseous abnormality or aggressive osseous lesion is identified. Visualized soft tissues are unremarkable. IMPRESSION * Radiographic features compatible with chronic obstructive pulmonary disease without superimposed acute cardiopulmonary abnormality. /[place] DICTATED BY: JENNY BURDICK DO DATE: 07/03/251540 ELECTRONICALLY SIGNED BY: JENNY BURDICK DO DATE: 07/03/251540 PLAN NEURO: Minimize central acting medications as possible. Maintain fall precautions, adequate lighting during the day PULMONARY: Supplemental 02 as needed. Maintain aspiration precautions at all times CARDIOVASCULAR: Follow hemodynamics. Vital signs per facility protocol GI & NUTRITION: Continue with nutritional support. Continue stool softeners and laxatives as needed. KIDNEYS & ELECTROLYTES: Strict monitoring of intake, output and overall fluid balance. Avoid nephrotoxic medications to the extent possible. Medications to be dosed according to renal function. Monitor electrolytes and replace as needed ENDOCRINE: Maintain blood glucose between 100-180 at all times. Hypoglycemia protocol in place INFECTIOUS DISEASE: Trend temperature, WBC and procalcitonin level Follow cultures, deescalate antibiotics as soon as possible. Panculture if new onset fever ONCOLOGY/HEMATOLOGY/COAGULATION: Monitor for s/s of bleeding Monitor hemoglobin, coagulation studies as needed SKIN: Pressure ulcer prevention per facility protocol Specialty mattress ORTHO/REHAB: Continue PT/OT Prophylaxis: Continue GI and DVT prophylaxis Code Status: Full Resuscitation Disposition: Home once medically stable for discharge ATTESTATION BY PHYSICIAN I have evaluated the patient chart, medical records, and spoke with appropriate staff. I reviewed the documentation, medical decision making, and treatment plan as noted by the mid-level provider above. I agree with the findings and plan of care. Domenic Montesinos MD, [facility] Jul 05, 2025 12:34
--- NOTE | 2025-07-05 12:52 | CONS ---
GASTROENTEROLOGY CONSULTATION NOTE Date of Consultation: Jul 05, 2025 Time of Consultation: 12:49 History of Present Illness: [ This is an 84-year-old female patient with past medical history for atrial fibrillation, hypertension, hyperlipidemia, restless legs syndrome, history of achalasia status post Heller myotomy with multiple EGD's in the past last being on 06/10/21, and dysphagia presented to the emergency room with complaints of having food getting stuck in her esophagus with a past four days. Poor oral intake. Patient's chest x-ray showing features compatible with chronic obstructive pulmonary disease without superimposed acute cardiopulmonary abnormality. B arium swallow study is pending. Patient's WBC of 6.6, hemoglobin 10.5, platelets 253. History is significant for albumin of 3.2. We were consulted for dysphagia. On exam, patient is awake, alert, and oriented x3. She reports not being able to intake food due to feeling of having food in the esophagus. She has requested to have medication to make sure vomit she reports having multiple EGDs in the past for the same problem. Recommendations for endoscopic evaluation and dilation given to patient and daughter at bedside. Patient requesting to have Dr. Pitts evaluate for case and we will proceed with EGD if he recommends endoscopic evaluation. Dr. Pitts consulted and he recommended EGD with small balloon dilation as patient has had previous dilation with large balloon and develop perforation.] Review of Systems: CONSTITUTIONAL: No malaise or change in sensation of wellbeing. ENMT: No rhinorrhea, otorrhea, sinus pain, ear ache. CARDIOVASCULAR: No angina, palpitations, orthopnea or paroxysmal dyspnea. RESPIRATORY: No SOB. GASTROINTESTINAL: No abdominal pain, nausea, vomiting, diarrhea, hematemesis, melena or change in the patient's habitual bowel movements consistency/number. GENITOURINARY: No dysuria, hematuria or change in bladder continence. MUSCULOSKELETAL: No new muscle pain or decrease in muscular strength. No new joint swelling, redness or tenderness. SKIN: No new rash. Past Medical History: A-Fib, High Cholesterol, Hypertension, Hypothyroidism, J-TUBE, GASTRITIS, ACHALASIA, RLS Surgical History: ABDOMINAL EXPLORATORY SURGERIES, MULTIPLE GI PROCEDURES, J- TUBE, BACK Surgery; Heller's Myomotomy Family History: Negative Social History: Negative, Lives in Assisted Coded Allergies: NSAIDS (Non-Steroidal Anti-Inflamma (Unverified Allergy, Unknown, 05/21/16) aspirin (Unverified Allergy, Unknown, 05/21/16) diazepam (Unverified Allergy, Unknown, 05/21/16) povidone (Unverified Allergy, Unknown, 05/21/16) Uncoded Allergies: REGLAN(METOCLOPRAMIDE) (Allergy, Unknown, 05/21/16) Physical Exam: GEN: Awake, alert, oriented in person, time and place, and in no acute distress. HEENT: No rhinorrhea. Oral mucosa is pink, moist and within normal limits. CHEST: Lung auscultation revealed normal breath sounds bilaterally. CARDIAC:Heart sounds are regular. ABD: Soft, non-tender and not distended. No peritoneal signs on palpation. Normal bowel sounds. EXT: No cyanosis or clubbing. No edema. SKIN: Intact. No rashes. NEURO: Alert and oriented to name, place and person.No focal motor deficits. Normal speech. Vital Sign (Last 24 Hours) 07/05/25 07/05/25 07/05/25 07:35 08:02 11:04 Temp 97.7 Pulse 71 Resp 18 B/P (MAP) 141/74 Pulse Ox 97 O2 Delivery N/A Room Air O2 Flow Rate 0 FiO2 21 l Intake & Output (last 24hrs) 07/04/25 07/04/25 07/05/25 15:00 23:00 07:00 Intake Total 825.0 ml Balance 825.0 ml Laboratory: [ ] Laboratory: Test 07/04/25 16:22 07/04/25 13:33 07/03/25 16:25 Range/Units Prothrombin Time 10.9 9.6-11.6 SEC Prothromb Time International Ratio 1.03 0.85-1.15 White Blood Count 6.6 # 4.8-10.8 K/uL Red Blood Count 3.89 L 4.00-5.50 MIL/uL Hemoglobin 10.5 L 12.0-16.0 g/dL Hematocrit 33.7 L 36-48 % Mean Corpuscular Volume 86.6 79-99 fL Mean Corpuscular Hemoglobin 27.0 27.0-33.0 pg Mean Corpuscular Hemoglobin Concent 31.2 L 32.0-36.0 g/dL Red Cell Distribution Width 13.6 11.0-15.5 % Platelet Count 253 130-400 K/uL Mean Platelet Volume 8.8 7.5-10.5 fL Immature Granulocyte % (Auto) 0.5 0-1 % Neutrophils (%) (Auto) 62.3 40.0-77.0 % Lymphocytes (%) (Auto) 24.7 21.0-51.0 % Monocytes (%) (Auto) 10.1 3.0-13.0 % Eosinophils (%) (Auto) 2.1 0.0-8.0 % Basophils (%) (Auto) 0.3 0.0-5.0 % Neutrophils # (Auto) 4.1 1.8-7.7 K/uL Lymphocytes # (Auto) 1.6 1.0-4.8 K/uL Monocytes # (Auto) 0.7 0.1-1.0 K/uL Eosinophils # (Auto) 0.14 0.00-0.70 K/uL Basophils # (Auto) 0.02 0.00-0.20 K/uL Absolute Immature Granulocyte (auto 0.03 0-1 K/uL Nucleated Red Blood Cells 0.0 0.0-0.19 % Sodium Level 138 136-145 mmol/L Potassium Level 3.7 3.5-5.1 mmol/L Chloride Level 105 101-111 mmol/L Carbon Dioxide Level 25 21-32 mmol/L Blood Urea Nitrogen 12 7-18 mg/dL Creatinine 0.9 0.5-1.0 mg/dL Glomerular Filtration Rate Calc 63 >90 mL/min Random Glucose 77 70-105 mg/dL Total Calcium 8.6 8.5-10.1 mg/dL Phosphorus Level 3.2 2.5-4.9 mg/dL Magnesium Level 1.90 1.80-2.40 mg/dL Total Bilirubin 0.7 0.2-1.0 mg/dL Aspartate Amino Transf (AST/SGOT) 27 10-37 U/L Alanine Aminotransferase (ALT/SGPT) 23 12-78 U/L Alkaline Phosphatase 55 50-136 U/L Total Protein 6.1 6.0-8.3 g/dL Albumin 3.2 L 3.5-5.0 g/dL Urine Color YELLOW YELLOW Urine Appearance CLEAR CLEAR Urine pH 6.0 5.0-8.0 Urine Specific [place] 1.019 1.001-1.031 Urine Protein NEGATIVE NEGATIVE mg/dL Urine Glucose (UA) NEGATIVE NEGATIVE mg/dL Urine Ketones 10 H NEGATIVE mg/dL Urine Occult Blood NEGATIVE NEGATIVE Urine Nitrate NEGATIVE NEGATIVE Urine Bilirubin NEGATIVE NEGATIVE mg/dL Urine Urobilinogen 0.2 0.2-1.0 mg/dL Urine Leukocyte Esterase NEGATIVE NEGATIVE Poppy/uL Urine RBC 0-1 0-1 /HPF Urine WBC 0-1 0-1 /HPF Urine Bacteria RARE None Seen /HPF Current Medications Medications (Trade) Dose Ordered Sig/Nabila Route PRN Reason Start Time Stop Time Status Last Admin Dose Admin Albuterol Sulfate (Proventil 0.083% 2.5mg/3ml) 2.5 mg [id number] PRN IH SHORTNESS OF BREATH 07/03/25 23:00 08/02/25 22:59 Atorvastatin Calcium (LIPItor 10MG) 10 mg HS PO 07/04/25 21:00 08/03/25 20:59 Diphenhydramine HCl (BENAdryl INJ) 25 mg Q6H PRN IV RESTLESS LEG 07/04/25 00:30 08/03/25 00:29 07/05/25 05:23 25 MG Enoxaparin Sodium (Lovenox) 40 mg DAILY SQ 07/05/25 09:00 08/04/25 08:59 07/05/25 09:14 40 MG Famotidine (Pepcid 20mg Vial) 20 mg DAILY@2100 IV 07/03/25 21:00 07/03/25 22:54 DC 07/03/25 20:28 20 MG Ferrous Sulfate (Ferrous Sulfate) 325 mg DAILY PO 07/05/25 09:00 08/04/25 08:59 Gabapentin (NEURontin 100 mg CAP) 100 mg HS PO 07/04/25 21:00 08/03/25 20:59 Hydromorphone HCl (DiLAUDid 1MG INJ) 0.5 mg Q2H PRN IVP SEVERE PAIN (7-10) 07/03/25 23:00 07/08/25 22:59 07/04/25 00:33 0.5 MG Labetalol HCl (TRANdate 20MG SYG) 10 mg Q2H PRN IV SBP GREATER THAN 180 07/03/25 23:00 08/02/25 22:59 Lactated Ringer's 1,000 ml @ 125 mls/hr Q8H IV 07/03/25 23:00 08/02/25 22:59 07/05/25 05:48 125 MLS/HR Levothyroxine Sodium (SYNTHroid 112MCG TAB) 112 mcg ACBKFST PO 07/05/25 07:30 07/05/25 08:02 DC Levothyroxine Sodium (SYNTHroid 112MCG TAB) 112 mcg SYN PO 07/06/25 06:30 08/04/25 07:29 Levothyroxine Sodium (SYNTHroid 25MCG TAB) 25 mcg SYN PO 07/05/25 06:30 08/04/25 06:29 Losartan Potassium (CozAAR 25MG TAB) 25 mg HS PO 07/04/25 21:00 08/03/25 20:59 Metoprolol Succinate (TopROL XL) 50 mg DAILY PO 07/05/25 09:00 08/04/25 08:59 Ondansetron HCl (zoFRAN 4MG INJ) 4 mg Q6H PRN IV NAUSEA/VOMITING 07/03/25 17:00 07/03/25 22:54 DC Ondansetron HCl (zoFRAN 4MG INJ) 4 mg Q6H PRN IVP NAUSEA/VOMITING 07/03/25 23:00 08/02/25 22:59 Pantoprazole Sodium (PROTonix 40MG INJ) 40 mg DAILY IVP 07/04/25 09:00 08/03/25 08:59 07/05/25 09:14 40 MG Sucralfate (Carafate) 1 gm DAILY PRN PO EPIGASTRIC DISTRESS 07/04/25 14:30 08/03/25 14:29 Warfarin Sodium (Coumadin) 5 mg PCDINNER PO 07/04/25 18:00 07/11/25 17:59 Diagnostics / Radiology: [COPY/PASTE HERE IF NO REPORTS PLEASE DELETE SECTION] Assessment: [ Dysphagia Achalasia Jtube Gastritis Hypertension Afibrillation Hypothyroidism ] Plan: Case discussed with Dr. Aiken and Dr. Pitts Keep NPO Plan for EGD with small balloon dilation in am. Patient pending Barium swallow study IV hydration Please call with questions, concerns, and change in clinical status. Thank you for this consult. ] TAYLOR BLACK Jul 05, 2025 12:52
--- NOTE | 2025-07-05 15:20 | NUR ---
SPEECH NOTE: Orders for MBSS received. However, patient currently NPO pending EGD. As per PMHx, patient with history of achalasia and dilations. Patient's symptoms during this admission include globus sensation, vomiting/regurgitations, decreased oral intake, and only seem to pass down liquids. All these symptoms are within the esophageal area and not visible during an MBSS as it is outside our field of study. Pt may benefit from upper GI series instead of MBSS. WILLOW MACHINE TENDER coordinated with Mumtaz Whatley, FISH CLEANER MACHINE TENDER and MBSS will be cancelled at this time. Nurse Munson notified. All questions answered.
[2025-07-06] VITALS (23 sets, daily range): BP systolic 121–185; BP diastolic 56–91; PULSE 63–79; RESP 15–18; TEMP 97–97.9; O2SAT 95–97
[2025-07-06 07:32] LABS: NUCLEATED RED BLOOD CELLS 0.0 % (0.0-0.19); PLATELET COUNT (AUTO) 263.0 K/uL (130-400); RED BLOOD CELL COUNT(AUTO) 4.28 MIL/uL (4.00-5.50); RED CELL DISTRIBUTION WIDTH 13.8 % (11.0-15.5); WHITE BLOOD COUNT (AUTO) 7.0 K/uL (4.8-10.8)
[2025-07-06 07:39] LABS: CREATININE 0.9 mg/dL (0.5-1.0); GLOMERULAR FILTR. RATE CALC 63.0 mL/min (>90); GLUCOSE,RANDOM 69.0 mg/dL (70-105); SODIUM SERUM 138.0 mmol/L (136-145); UREA NITROGEN, BLOOD 12.0 mg/dL (7-18)
[2025-07-06] MEDS ORDERED: LIDOCAINE PF 100MG/5ML (2%) SYRINGE 5ML ONE (10:10)
[2025-07-06] MEDS ORDERED: GLYCOPYRROLATE 0.2 MG/ML 5 ML VIAL ONE (10:12)
[2025-07-06] MEDS ORDERED: SUCCINYLCHOLINE CHLORIDE 20 MG/ML 10 ML VIAL ONE (10:12)
[2025-07-06] MEDS ORDERED: NEOSTIGMINE METHYLSULFATE 1MG/ML IV ONE (10:12)
[2025-07-06] MEDS ORDERED: MIDAZOLAM HCL 1 MG/ML 2ML VIAL ONE (10:13)
[2025-07-06] MEDS ORDERED: ALBUMIN (HUMAN) 5% 0 ML IV ONE (10:25)
--- NOTE | 2025-07-06 12:26 | NUR ---
PATIENT ARRIVED TO UNIT. A&Ox4 97.7 F HR 74 RR 16 B/P 151/67 O2SAT 94% ON RA. PATIENT VERBALIZES 0/10 PAIN. CALL LIGHT WITHIN REACH, BED LOW AND LOCKED. RAILS UP X2
--- NOTE | 2025-07-06 12:48 | PN ---
[facility] PROGRESS NOTE Date Patient Seen: Jul 06, 2025 Time of Visit: 12:48 Supervising Physician: Dr. Chyna Lara Primary Care Physician: Dr. Jensen Outpatient Specialists: [ ] Inpatient Consults: [GI] PROBLEM LIST: Dysphagia, POA Atrial fibrillation, rate controlled, on warfarin, POA Hypertension, POA Hyperlipidemia, POA Restless leg syndrome, POA History of Achalasia s/p Heller's Myotomy, with multiple EGD's in the past INTERVAL HISTORY: [84-year-old female with past medical history of hypertension, hyperlipidemia, atrial fibrillation, on chronic anticoagulation with warfarin, history of achalasia s/p Heller myotomy (50 years ago) who presented to ED via private vehicle with complaint of difficulty swallowing with associated vomiting. Apparently patient has been having issues with swallowing for the past several days and can only take small amount of fluids. There is no associated abdominal pain, fever, or aspiration. Patient lives alone, patient was brought in by a neighbor. In ED CBC was done showed no acute infection or anemia, her chemistry did not reveal any electrolyte or kidney dysfunction. Chest x-ray showed features compatible with COPD without superimposed acute cardiopulmonary abnormality. At present patient is currently hemodynamically stable, normal sinus rhythm on the monitor, on room air with appropriate oxygen saturation, denies any headache, chest pain, shortness of breath, cough, abdominal pain, nausea or vomiting, or fever. Patient denies any smoking, alcohol intake, or illicit drug use. ] 07/04 Patient is evaluated at bedside. She continues NPO. Admits an episode of vomiting prior to admission. States unable to pass food including pudding. She is able to pass small amounts of liquids. Patient follows Dr. Pitts outpatient. Cannot remember her last EGD, but states "I don't want that procedure." She has had prior myotomies for her condition and understands that her symptoms are a complication of her condition which may be more appropriately treated through an EGD. Will defer to specialist on evaluation. 07/05 - patient is seen and evaluated at the bedside. Patient is sitting up in bed does not appear to be in any acute distress at this time. Patient remains NPO at this time. Patient reports she was able to pass a small amount of liquids. Patient has a longstanding history of achalasia NS status post Heller's myotomies. GI has been consulted and pending evaluation, patient would benefit from pneumatic dilation. We will await for further recommendations from GI. Vital signs are stable. Labs are within normal limits. We will continue NPO status and IV fluids for now. 07/06-The patient examined and seen while resting in bed with the head of the bed elevated, awake alert and oriented, and appears in no acute distress. Accompanied by patient's bedside nurse. Reviewed and discussed with patient laboratory results, vital signs, diagnostic EGD with dilation of 20 mm. Patient tolerated the procedure discussed with patient procedure and provider's notes pertaining to the procedure. Also discussed medications being used and patient's ability to maintain her diet. At this time patient will be on a clear liquid diet. We will follow recommendations of specialists further orders per course of stay a.m. labs ordered. PLAN: Supplemental oxygen as needed Clear liquid diet Continue IV fluids Follow GI recommendation Aspiration precautions Keep head of bed above 30 Zofran IV p.r.n. for nausea or vomiting Keep SBP less than 160 Replace electrolytes via protocol Keep potassium level above four, magnesium level above two Bilateral SCDs Repeat a.m. lab REVIEW OF SYSTEMS: 12 point ROS reviewed with patient. Pertinent positives mentioned above. Otherwise negative. PHYSICAL EXAM: GENERAL: alert, weak, awake oriented x 3 HEENT: EOMI, Sclera non icteric, moist mucosa NECK: Supple, no JVD, trachea midline LUNGS: Clear breath sounds bilaterally. No wheezes HEART: Regular rate and rhythm. Normal S1 and S2, without murmurs ABD: Abdomen soft, nontender. Bowel sounds present EXT: No clubbing cyanosis or edema NEURO: Alert and oriented to person, follows commands Vital Signs (last 8hr) Date Time Temp Pulse Resp B/P (MAP) Pulse Ox O2 Delivery O2 Flow Rate FiO2 07/06/25 12:15 97.2 73 16 156/66 96 Room Air 07/06/25 12:10 72 15 142/64 96 Room Air 07/06/25 12:05 71 15 158/64 96 Room Air 07/06/25 12:00 72 16 152/64 96 Room Air 07/06/25 11:55 74 15 164/56 98 Room Air 07/06/25 11:50 77 15 156/66 99 Nonrebreathing Mask 10.0 07/06/25 11:45 97.0 79 15 149/60 99 Nonrebreathing Mask 10.0 07/06/25 11:25 Mask 07/06/25 11:25 Mask 10.0 07/06/25 10:08 95 Room Air* 0 21 07/06/25 08:00 97.9 70 16 161/76 95 Room Air 07/06/25 06:47 76 18 N/A Room Air 21 LABS: Hematology Labs: Test 07/06/25 07:25 07/04/25 13:33 Range/Units White Blood Count 7.0 4.8-10.8 K/uL Red Blood Count 4.28 4.00-5.50 MIL/uL Hemoglobin 11.8 L 12.0-16.0 g/dL Hematocrit 36.0 36-48 % Mean Corpuscular Volume 84.1 79-99 fL Mean Corpuscular Hemoglobin 27.6 27.0-33.0 pg Mean Corpuscular Hemoglobin Concent 32.8 32.0-36.0 g/dL Red Cell Distribution Width 13.8 11.0-15.5 % Platelet Count 263 130-400 K/uL Mean Platelet Volume 8.5 7.5-10.5 fL Nucleated Red Blood Cells 0.0 0.0-0.19 % Immature Granulocyte % (Auto) 0.5 0-1 % Neutrophils (%) (Auto) 62.3 40.0-77.0 % Lymphocytes (%) (Auto) 24.7 21.0-51.0 % Monocytes (%) (Auto) 10.1 3.0-13.0 % Eosinophils (%) (Auto) 2.1 0.0-8.0 % Basophils (%) (Auto) 0.3 0.0-5.0 % Neutrophils # (Auto) 4.1 1.8-7.7 K/uL Lymphocytes # (Auto) 1.6 1.0-4.8 K/uL Monocytes # (Auto) 0.7 0.1-1.0 K/uL Eosinophils # (Auto) 0.14 0.00-0.70 K/uL Basophils # (Auto) 0.02 0.00-0.20 K/uL Absolute Immature Granulocyte (auto 0.03 0-1 K/uL Chemistry Labs: Test 07/06/25 07:25 07/04/25 13:33 Range/Units Sodium Level 138 136-145 mmol/L Potassium Level 4.1 3.5-5.1 mmol/L Chloride Level 102 101-111 mmol/L Carbon Dioxide Level 26 21-32 mmol/L Blood Urea Nitrogen 12 7-18 mg/dL Creatinine 0.9 0.5-1.0 mg/dL Glomerular Filtration Rate Calc 63 >90 mL/min Random Glucose 69 L 70-105 mg/dL Total Calcium 8.8 8.5-10.1 mg/dL Phosphorus Level 3.2 2.5-4.9 mg/dL Magnesium Level 1.90 1.80-2.40 mg/dL Total Bilirubin 0.7 0.2-1.0 mg/dL Aspartate Amino Transf (AST/SGOT) 27 10-37 U/L Alanine Aminotransferase (ALT/SGPT) 23 12-78 U/L Alkaline Phosphatase 55 50-136 U/L Total Protein 6.1 6.0-8.3 g/dL Albumin 3.2 L 3.5-5.0 g/dL Coagulation Labs: Test 07/04/25 16:22 Range/Units Prothrombin Time 10.9 9.6-11.6 SEC Prothromb Time International Ratio 1.03 0.85-1.15 DIAGNOSTICS / RADIOLOGY RESULTS: [ ] PLAN NEURO: Minimize central acting medications as possible. Maintain fall precautions, adequate lighting during the day PULMONARY: Supplemental 02 as needed. Maintain aspiration precautions at all times CARDIOVASCULAR: Follow hemodynamics. Vital signs per facility protocol GI & NUTRITION: Continue with nutritional support. Continue stool softeners and laxatives as needed. KIDNEYS & ELECTROLYTES: Strict monitoring of intake, output and overall fluid balance. Avoid nephrotoxic medications to the extent possible. Medications to be dosed according to renal function. Monitor electrolytes and replace as needed ENDOCRINE: Maintain blood glucose between 100-180 at all times. Hypoglycemia protocol in place INFECTIOUS DISEASE: Trend temperature, WBC and procalcitonin level Follow cultures, deescalate antibiotics as soon as possible. Panculture if new onset fever ONCOLOGY/HEMATOLOGY/COAGULATION: Monitor for s/s of bleeding Monitor hemoglobin, coagulation studies as needed SKIN: Pressure ulcer prevention per facility protocol Specialty mattress ORTHO/REHAB: Continue PT/OT Prophylaxis: Continue GI and DVT prophylaxis Code Status: Full Resuscitation Disposition: Home once medically stable for discharge BHAVANI MORENO AGACNP Jul 06, 2025 12:48
[2025-07-07] VITALS (7 sets, daily range): BP systolic 107–140; BP diastolic 60–168; PULSE 60–87; RESP 13–18; TEMP 97.6–98.2; O2SAT 97–98
--- NOTE | 2025-07-07 10:32 | PN ---
GASTROENTEROLOGY PROGRESS NOTE Date of Visit: Jul 07, 2025 Time of Visit: 10:28 Events / Notes: [Patient underwent an EGD on 07/06/2025, and was found to have food in the lower 3rd of the esophagus with removal accomplished with a Welsh net, erythematous mucosa in the stomach, the duodenal bulb and 2nd portion of duodenum were normal. Abnormal motility was noted in the esophagus a TTS dilator was passed through the scope and dilation with an 18-19-20 mm balloon dilator was performed to 20 mm. VSS. WBC of 7.0, hemoglobin 11.8, platelets 263. Chemistry significant for glucose of 69. ] Review of Systems: CONSTITUTIONAL: No malaise or change in sensation of wellbeing. ENMT: No rhinorrhea, otorrhea, sinus pain, ear ache. CARDIOVASCULAR: No angina, palpitations, orthopnea or paroxysmal dyspnea. RESPIRATORY: No SOB. GASTROINTESTINAL: No abdominal pain, nausea, vomiting, diarrhea, hematemesis, melena or change in the patient's habitual bowel movements consistency/number. GENITOURINARY: No dysuria, hematuria or change in bladder continence. MUSCULOSKELETAL: No new muscle pain or decrease in muscular strength. No new joint swelling, redness or tenderness. SKIN: No new rash. Physical Exam: GEN: Awake, alert, oriented in person, time and place, and in no acute distress. HEENT: No rhinorrhea. Oral mucosa is pink, moist and within normal limits. CHEST: Lung auscultation revealed normal breath sounds bilaterally. CARDIAC:Heart sounds are regular. ABD: Soft, non-tender and not distended. No peritoneal signs on palpation. Normal bowel sounds. EXT: No cyanosis or clubbing. No edema. SKIN: Intact. No rashes. NEURO: Alert and oriented to name, place and person.No focal motor deficits. Normal speech. Vital Signs (last 8hr) Date Time Temp Pulse Resp B/P (MAP) Pulse Ox O2 Delivery O2 Flow Rate FiO2 07/07/25 08:11 97.5 87 18 138/60 97 Room Air 07/07/25 06:53 75 18 N/A Room Air 21 07/07/25 03:53 97.9 72 18 /168 98 Room Air Laboratory: [ ] Laboratory: Test 07/06/25 07:25 Range/Units White Blood Count 7.0 4.8-10.8 K/uL Red Blood Count 4.28 4.00-5.50 MIL/uL Hemoglobin 11.8 L 12.0-16.0 g/dL Hematocrit 36.0 36-48 % Mean Corpuscular Volume 84.1 79-99 fL Mean Corpuscular Hemoglobin 27.6 27.0-33.0 pg Mean Corpuscular Hemoglobin Concent 32.8 32.0-36.0 g/dL Red Cell Distribution Width 13.8 11.0-15.5 % Platelet Count 263 130-400 K/uL Mean Platelet Volume 8.5 7.5-10.5 fL Nucleated Red Blood Cells 0.0 0.0-0.19 % Sodium Level 138 136-145 mmol/L Potassium Level 4.1 3.5-5.1 mmol/L Chloride Level 102 101-111 mmol/L Carbon Dioxide Level 26 21-32 mmol/L Blood Urea Nitrogen 12 7-18 mg/dL Creatinine 0.9 0.5-1.0 mg/dL Glomerular Filtration Rate Calc 63 >90 mL/min Random Glucose 69 L 70-105 mg/dL Total Calcium 8.8 8.5-10.1 mg/dL Current Medications Medications (Trade) Dose Ordered Sig/Nabila Route PRN Reason Start Time Stop Time Status Last Admin Dose Admin Albuterol Sulfate (Proventil 0.083% 2.5mg/3ml) 2.5 mg [id number] PRN IH SHORTNESS OF BREATH 07/03/25 23:00 08/02/25 22:59 Atorvastatin Calcium (LIPItor 10MG) 10 mg HS PO 07/04/25 21:00 08/03/25 20:59 07/06/25 20:42 10 MG Diphenhydramine HCl (BENAdryl INJ) 25 mg Q6H PRN IV RESTLESS LEG 07/04/25 00:30 08/03/25 00:29 07/05/25 05:23 25 MG Enoxaparin Sodium (Lovenox) 40 mg DAILY SQ 07/05/25 09:00 08/04/25 08:59 07/06/25 10:03 40 MG Famotidine (Pepcid 20mg Vial) 20 mg DAILY@2100 IV 07/03/25 21:00 07/03/25 22:54 DC 07/03/25 20:28 20 MG Ferrous Sulfate (Ferrous Sulfate) 325 mg DAILY PO 07/05/25 09:00 08/04/25 08:59 Gabapentin (NEURontin 100 mg CAP) 100 mg HS PO 07/04/25 21:00 08/03/25 20:59 07/06/25 20:42 100 MG Hydromorphone HCl (DiLAUDid 1MG INJ) 0.5 mg Q2H PRN IVP SEVERE PAIN (7-10) 07/03/25 23:00 07/08/25 22:59 07/07/25 01:58 0.5 MG Labetalol HCl (TRANdate 20MG SYG) 10 mg Q2H PRN IV SBP GREATER THAN 180 07/03/25 23:00 08/02/25 22:59 Lactated Ringer's 1,000 ml @ 125 mls/hr Q8H IV 07/03/25 23:00 08/02/25 22:59 07/06/25 06:25 125 MLS/HR Levothyroxine Sodium (SYNTHroid 112MCG TAB) 112 mcg ACBKFST PO 07/05/25 07:30 07/05/25 08:02 DC Levothyroxine Sodium (SYNTHroid 112MCG TAB) 112 mcg SYN PO 07/06/25 06:30 08/04/25 07:29 07/07/25 06:18 112 MCG Levothyroxine Sodium (SYNTHroid 25MCG TAB) 25 mcg SYN PO 07/05/25 06:30 08/04/25 06:29 07/07/25 06:18 25 MCG Losartan Potassium (CozAAR 25MG TAB) 25 mg HS PO 07/04/25 21:00 08/03/25 20:59 07/06/25 20:42 25 MG Metoprolol Succinate (TopROL XL) 50 mg DAILY PO 07/05/25 09:00 08/04/25 08:59 Ondansetron HCl (zoFRAN 4MG INJ) 4 mg Q6H PRN IV NAUSEA/VOMITING 07/03/25 17:00 07/03/25 22:54 DC Ondansetron HCl (zoFRAN 4MG INJ) 4 mg Q6H PRN IVP NAUSEA/VOMITING 07/03/25 23:00 07/05/25 15:11 DC Pantoprazole Sodium (PROTonix 40MG INJ) 40 mg DAILY IVP 07/04/25 09:00 08/03/25 08:59 07/06/25 10:01 40 MG Sucralfate (Carafate) 1 gm DAILY PRN PO EPIGASTRIC DISTRESS 07/04/25 14:30 08/03/25 14:29 Warfarin Sodium (Coumadin) 5 mg PCDINNER PO 07/04/25 18:00 07/11/25 17:59 Diagnostics / Radiology: [COPY/PASTE HERE IF NO REPORTS PLEASE DELETE SECTION] Assessment: [ Dysphagia Achalasia Jtube Gastritis Hypertension Atrial Fibrillation Hypothyroidism ] Plan: Case discussed with Dr. Aiken and Dr. Pitts No further GI endoscopic intervention at this time IV hydration and continue with supplemental nutrition Recommend patient f/u at [facility] 1 week from discharge for futher evaluation of need for repeat dilation. Please call with questions, concerns, and change in clinical status. Thank you for this consult. ] TAYLOR BLACK [employer] INSPECTOR Jul 07, 2025 10:32
--- NOTE | 2025-07-07 12:00 | NUR ---
CALLED SPEECH FOR SPEECH EVALUATION PENDING FOR PATIENT. SPEECH AWARE.
--- NOTE | 2025-07-07 12:40 | NUR ---
BEDSIDE SWALLOW EVAL COMPLETED. No s/s of aspiration. RECOMMEND: pureed solids, thin liquids and pills crushed or whole 1 per swallow as tolerated. COMPENSATORY STRATEGIES: 1. sit upright during oral intake 2. small bites/sips 3. slow oral intake TIE HACKER reviewed results and recommendations with patient and nurse Simona. TIE HACKER educated patient on risks and consequences of aspiration. Speech therapy not warranted at this time. All questions answered. Addendum: 07/07/[address] [facility]ILL[facility] MALONE Amended: Links added.
--- NOTE | 2025-07-07 17:24 | DS ---
[facility] DISCHARGE SUMMARY Date Patient Seen: Jul 07, 2025 Time of Visit: 17:24 Supervising Physician: Dr Chyna Lara Primary Care Physician: Dr.Luis Martinez Outpatient Specialists: Dr Pitts (GI [facility]) Inpatient Consults: Dr Cowan (GI, [facility]) PROBLEM LIST: Achalasia s/p Heller's Myotomy, with multiple EGD's in the past Dysphagia, POA CHRONIC PROBLEM LIST: Atrial fibrillation, rate controlled, on warfarin Hypertension Hyperlipidemia HOSPITAL COURSE: Patient was admitted to the hospital clinically worked up diagnosed with dysphagia secondary to achalasisa s/p Heller's Myotomy, with multiple EGD's in the past. [facility], GI specialists Dr. Pitts sees the patient as an outpatient. Dr. Cowan assess the patient and performed on 07/06/2025 EGD with esophageal dilation of 20 mm. After the procedure the patient was started on clear liquids then advanced to a GI soft pureed diet which the patient tolerated. Additionally during the clinical workup the patient was diagnosed with hyponatremia gentle IV hydration while the patient has been NPO has a assisted since the patient can not tolerate p.o. intake the patient will be started on sodium chloride tablets 1 g p.o. q.12 hours. At this point in the admission process the patient has been cleared by GI and we will follow up with outpatient GI specialists at [facility] in seven days for a follow up appointment additionally the patient will follow up with Dr. Martinez in 2-3 business days after the holiday. At this time after the discharge education the patient has no questions or concerns the patient will be prescribed the following medication Sodium chloride tablets 1 g p.o. q.12 hours 10 days 20 tablets. 84-year-old female with past medical history of hypertension, hyperlipidemia, atrial fibrillation, on chronic anticoagulation with warfarin, history of achalasia s/p Heller myotomy (50 years ago) who presented to ED via private vehicle with complaint of difficulty swallowing with associated vomiting. Apparently patient has been having issues with swallowing for the past several days and can only take small amount of fluids. There is no associated abdominal pain, fever, or aspiration. Patient lives alone, patient was brought in by a neighbor. In ED CBC was done showed no acute infection or anemia, her chemistry did not reveal any electrolyte or kidney dysfunction. Chest x-ray showed features compatible with COPD without superimposed acute cardiopulmonary abnormality. At present patient is currently hemodynamically stable, normal sinus rhythm on the monitor, on room air with appropriate oxygen saturation, denies any headache, chest pain, shortness of breath, cough, abdominal pain, nausea or vomiting, or fever. Patient denies any smoking, alcohol intake, or illicit drug use The patient was treated for the following problems: ACTIVE PROBLEM LIST FOR THE HOSPITALIZATION: Achalasia s/p Heller's Myotomy, with multiple EGD's in the past Dysphagia, POA CHRONIC PROBLEMS: continue previous management per PCP unless otherwise indicated Atrial fibrillation, rate controlled, on warfarin Hypertension Hyperlipidemia FEATHER TRIMMER FINDINGS/RECOMMENDATIONS: [ ] PROCEDURES: as mentioned above Patient underwent an EGD on 07/06/2025, and was found to have food in the lower 3rd of the esophagus with removal accomplished with a Welsh net, erythematous mucosa in the stomach, the duodenal bulb and 2nd portion of duodenum were normal. Abnormal motility was noted in the esophagus a TTS dilator was passed through the scope and dilation with an 18-19-20 mm balloon dilator was performed to 20 mm. VSS. WBC of 7.0, hemoglobin 11.8, platelets 263. Chemistry significant for glucose of 69 DISCHARGE MEDICATIONS: Sodium chloride tablets 1 g p.o. q.12 hours 10 days 20 tablets. Pt hemodynamically stable and afebrile at time of discharge. PCP notified of patients admission, hospital course and discharge. PHYSICAL EXAM: GENERAL: alert, weak, awake oriented x 3 HEENT: EOMI, Sclera non icteric, moist mucosa NECK: Supple, no JVD, trachea midline LUNGS: Clear breath sounds bilaterally. No wheezes HEART: Regular rate and rhythm. Normal S1 and S2, without murmurs ABD: Abdomen soft, nontender. Bowel sounds present EXT: No clubbing cyanosis or edema NEURO: Alert and oriented to person, follows commands FOLLOW-UP: Dr Emmanuel Estevez Follow-up with PCP in 2-3 days RECOMMENDATIONS: See Discharge Instructions This case was seen and discussed with my supervising physician. More than 50 minutes spent on discharge process, including evaluation of the patient, discussion with nursing staff, medication reconciliation and follow-up appointments BHAVANI MORENO AGACNP Jul 07, 2025 17:24
--- NOTE | 2025-07-07 17:46 | NUR ---
PATIENT STATED THEY CANNOT BE DISCHARGED UNTIL AFTER 19:00 BECAUSE THEIR TRANSPORT DOES NOT ARRIVE UNTIL THEN. BHAVANI MORENO NP AWARE.
--- NOTE | 2025-07-07 19:57 | NUR ---
DISCHARGE PATIENT DISCHARGED PER MD ORDERED. PERIPHERIAL IV REMOVED, CATHETER INTACT. DISCHARGE INSTRUCTIONS GIVEN, NO NEW PRESCRIPTIONS. PATIENT AWARE TO CONTINUE HOME MEDICATIONS, FOLLOW PUREE DIET INSTRUCTED PER MD, AND TO FOLLOW UP WITH DR. LOW IN 2-3 DAYS, AND [facility] IN 1-2 WEEKS. PATIENT VERBALIZED UNDERSTANDING. PATIENT LEFT VIA WHEELCHAIR TO PRIVATE CAR. ALL QUESTIONS ANSWERED.
== END 2025-07-07 19:57 | disposition home or self-care (01) | DRG 394 ==
LOC: EDH 12:53 → EDHIP 16:48 → 4CH 22:17 → OBSVTOIN 07-05 10:00
PROVIDERS: ADMIT Internal Medicine Critical Care Medicine; ATTEND Internal Medicine Critical Care Medicine
PROC: 0D738ZZ Dilation of Lower Esophagus, Via Natural or Artificial Opening Endoscopic (ICD-10-PCS; principal; 2025-07-06)
DX: T18.128A Food in esophagus causing other injury, initial encounter (principal); E87.1 Hypo-osmolality and hyponatremia; K22.0 Achalasia of cardia; R13.10 Dysphagia, unspecified; I48.91 Unspecified atrial fibrillation; G25.81 Restless legs syndrome; Z79.01 Long term (current) use of anticoagulants; E03.9 Hypothyroidism, unspecified; I10 Essential (primary) hypertension; J44.9 Chronic obstructive pulmonary disease, unspecified; K31.89 Other diseases of stomach and duodenum; K29.70 Gastritis, unspecified, without bleeding; E78.00 Pure hypercholesterolemia, unspecified; Z79.899 Other long term (current) drug therapy; Z88.8 Allergy status to other drugs, medicaments and biological substances; Z79.82 Long term (current) use of aspirin; W44.F3XA Food entering into or through a natural orifice, initial encounter; Y93.89 Activity, other specified; Y92.89 Other specified places as the place of occurrence of the external cause; Y99.8 Other external cause status
CPT/HCPCS: 36415; 43247; 43249; 71045; 80048; 80053; 81001; 83735; 84100; 85025; 85027; 85610; 92610; 96361; 96374; 99285; A4606; G0378; J0330; J1100; J1171; J1200; J1650; J2003; J2250; J2405; J2470; J2704; J2710; J3010; J3490; J7120; P9045; A4215; A4620; A7002; C1726; J1308